=== PATIENT | male | born 1960 | race Two or more races ===

== ENCOUNTER 2016-11-16 20:40 | Inpatient (IN) | payer MEDICARE, MEDICAID ==
[2016-11-16 21:15] VITALS: BP 95/70
--- NOTE | 2016-11-17 00:31 | History & Physical ---
ADMIT DATE: 11/16/2016 HISTORY OF PRESENT ILLNESS: A 56-year-old male patient apparently known to have history of cerebral palsy and he found himself trying to hang himself in the shower robe and he was seen at the [facility], was admitted for depression, hopelessness, anxiety and anger. PAST MEDICAL HISTORY: History of hyperlipidemia and history of cerebral palsy and mental delay. PHYSICAL EXAMINATION: GENERAL: The patient curled up in the bed. HEAD: Normal. ENT: Normal. NECK: Supple, nontender. LUNGS: Clear. CARDIOVASCULAR SYSTEM: S1, S2 heard. ABDOMEN: Soft. Bowel sounds are heard. CENTRAL NERVOUS SYSTEM: Grossly normal. DIAGNOSES: Status post history of ____, history of cerebral palsy, history of depression, history of hyperlipidemia and history of major depressive disorder and ____. PLAN: The patient is being admitted. I will follow clinically and I will review his labs and x-ray and medications and the Psych, Dr. Jean will follow the patient psychiatrically. [facility]# [id number]
[2016-11-17] MEDS: OLANZapine 5 mg Oral Disintegrating Tab PO SCH ×3 (06:55→17:36)
[2016-11-17] MEDS ORDERED: Haloperidol Lactate 5 mg/mL 1mL Vial IM ONE (11:38)
[2016-11-17] MEDS ORDERED: Haloperidol Lactate 5 mg/mL 1mL Vial ONE (11:45)
--- NOTE | 2016-11-17 11:59 | History & Physical ---
ADMIT DATE: 11/16/2016 IDENTIFYING INFORMATION: The patient is a 56-year-old male. CHIEF COMPLAINT: The patient nonverbal, but yelling and screaming. HISTORY OF PRESENT ILLNESS: The patient was admitted because of depression, attempted to harm himself in the bathroom in his home. He is not on any medication. He came from [facility], he resides in [facility]. He has cerebral palsy. The patient has been yelling and screaming. Unable to participate in a meaningful conversation or make safe plan for self-care. He is unpredictable, impulsive, needing redirection, he is yelling and screaming, he wants injection. He is self-referred. Unable to make safe plan for self-care. PAST PSYCHIATRIC HISTORY: Not known to me, but apparently he has been already on Paxil, Ativan and Zyprexa, so that probably indicates that he may have been seen by psychiatrist. MEDICAL HISTORY: Deferred to the medical doctor. ALLERGIES: HE IS ALLERGIC TO PENICILLIN. He has cerebral palsy, nonverbal, mental retardation. MEDICATIONS: He is on Zyprexa 5 mg twice a day, Paxil 60 mg daily. No other medications. He is on hydrocodone and would like it in injection the staff reports, I am not sure how he interacts with them. FAMILY AND SOCIAL HISTORY: Unobtainable, I am not sure where he was living or if he is living with anybody. No information is available. MENTAL STATUS EXAMINATION: The patient is appropriately dressed, not well groomed. He looked disheveled. He has diapers on, yelling and screaming, unable to provide meaningful conversation. ____ hang himself. Unable to test his memory. He obviously has poor insight. He is depressed, unpredictable, impulsive, needing redirection. His insight and judgment is impaired. IMPRESSION: AXIS I: Mood disorder, depressed, nonspecific. MEDICAL DIAGNOSIS: Cerebral palsy. His assets, he wants to get help, negative poor coping skills. INITIAL TREATMENT PLAN: The patient will be put on medications. Adjust medication as needed. ESTIMATED LENGTH OF STAY: 3-7 days. DISCHARGE CRITERIA: Decrease in depression, no longer yelling and screaming or suicidal after discharge. [facility]# [id number]
--- NOTE | 2016-11-17 14:30 | General Progress Note ---
Subjective - Review of Systems Events since last encounter: patient awake no acute distress patient is withdrawn depressed with h/o si Objective - Physical Exam Vitals and I&O: Vital Signs Temp 98.6 F 11/16/16 21:09 Pulse 100 11/16/16 21:09 Resp 20 11/17/16 08:00 BP 95/70 11/16/16 21:14 Pulse Ox 97 11/16/16 21:09 Intake & Output 11/16/16 11/17/16 11/17/16 18:59 06:59 18:59 Intake Total 0 Balance 0 Weight (lbs) 86.001 kg Intake: Oral 0 Other: # Voids 1 # Bowel Movements 0 Active Medications: Current Medications Acetaminophen (Tylenol) 650 mg PO Q4HR PRN PRN Reason: Mild Pain / Temp above 100 Stop: 01/15/17 21:28 Acetaminophen/Hydrocodone Bitart ([place] 10 Mg/325 Mg) 1 tab PO Q6H PRN PRN Reason: Pain (Mild) Stop: 01/15/17 23:31 Diazepam (Valium) 5 mg PO TID PRN PRN Reason: Anxiety Olanzapine (Zyprexa Zydis) 5 mg PO BID KENDRA PRN Reason: Protocol Stop: 01/16/17 05:59 Last Admin: 11/17/16 06:55 Dose: Not Given Paroxetine HCl (Paxil) 30 mg PO DAILY [facility] Stop: 01/16/17 08:59 Temazepam (Restoril) 15 mg PO HS PRN; Protocol PRN Reason: Insomnia Stop: 01/15/17 23:31 General: No acute distress HEENT: Atraumatic Cardiovascular: Regular rate, Normal S1, Normal S2 Abdomen: Bowel sounds Assessment/Plan - Problem List Patient Problems: All Active Problems H/O hyperlipidemia (Acute) Z86.39 H/O: CVA (cerebrovascular accident) (Acute) Z86.73 H/O: depression (Acute) Z86.59 - Plan Plan: as per psych as problems arise
--- NOTE | 2016-11-18 09:55 | General Progress Note ---
Subjective - Review of Systems Events since last encounter: patient still withdrawn insolates from others depressed , denies pain Objective - Physical Exam Vitals and I&O: Vital Signs Temp 98 F 11/18/16 06:48 Pulse 82 11/18/16 06:48 Resp 20 11/18/16 06:48 BP 135/80 11/18/16 06:48 Pulse Ox 95 11/18/16 06:48 Intake & Output 11/17/16 11/18/16 11/18/16 18:59 06:59 18:59 Intake Total 720 0 Balance 720 0 Intake: Oral 720 0 Other: # Voids 3 3 # Bowel Movements 0 0 Active Medications: Current Medications Acetaminophen (Tylenol) 650 mg PO Q4HR PRN PRN Reason: Mild Pain / Temp above 100 Stop: 01/15/17 21:28 Acetaminophen/Hydrocodone Bitart ([place] 10 Mg/325 Mg) 1 tab PO Q6H PRN PRN Reason: Pain (Mild) Stop: 01/15/17 23:31 Diazepam (Valium) 5 mg PO TID PRN PRN Reason: Anxiety Ketorolac Tromethamine (Toradol) 30 mg IM Q6HR PRN PRN Reason: Pain (Moderate) Stop: 01/16/17 19:35 Olanzapine (Zyprexa Zydis) 5 mg PO BID KENDRA PRN Reason: Protocol Stop: 01/16/17 05:59 Last Admin: 11/17/16 17:36 Dose: 5 mg Paroxetine HCl (Paxil) 30 mg PO DAILY KENDRA Stop: 01/16/17 08:59 Last Admin: 11/17/16 17:34 Dose: 30 mg Temazepam (Restoril) 15 mg PO HS PRN; Protocol PRN Reason: Insomnia Stop: 01/15/17 23:31 Last Admin: 11/17/16 20:13 Dose: 15 mg General: No acute distress HEENT: Atraumatic Cardiovascular: Regular rate, Normal S1, Normal S2 Abdomen: Bowel sounds Assessment/Plan - Problem List Patient Problems: All Active Problems H/O hyperlipidemia (Acute) Z86.39 H/O: CVA (cerebrovascular accident) (Acute) Z86.73 H/O: depression (Acute) Z86.59 - Plan Plan: as per psych as problems arise
[2016-11-18] MEDS: OLANZapine 5 mg Oral Disintegrating Tab PO SCH ×2 (10:25→17:10)
[2016-11-19] MEDS: OLANZapine 5 mg Oral Disintegrating Tab PO SCH ×2 (08:17→16:48)
--- NOTE | 2016-11-19 08:45 | General Progress Note ---
Subjective - Review of Systems Events since last encounter: no acute distress patient awake still depressed Objective - Physical Exam Vitals and I&O: Vital Signs Temp 97.5 F 11/19/16 06:41 Pulse 65 11/19/16 06:41 Resp 18 11/19/16 06:41 BP 120/66 11/19/16 06:41 Pulse Ox 96 11/19/16 06:41 Intake & Output 11/18/16 11/19/16 11/19/16 18:59 06:59 18:59 Intake Total 960 120 Balance 960 120 Intake: Oral 960 120 Other: # Voids 3 3 # Bowel Movements 0 Active Medications: Current Medications Acetaminophen (Tylenol) 650 mg PO Q4HR PRN PRN Reason: Mild Pain / Temp above 100 Stop: 01/15/17 21:28 Acetaminophen/Hydrocodone Bitart ([place] 10 Mg/325 Mg) 1 tab PO Q6H PRN PRN Reason: Pain (Mild) Stop: 01/15/17 23:31 Diazepam (Valium) 5 mg PO TID PRN PRN Reason: Anxiety Ketorolac Tromethamine (Toradol) 30 mg IM Q6HR PRN PRN Reason: Pain (Moderate) Stop: 01/16/17 19:35 Olanzapine (Zyprexa Zydis) 5 mg PO BID KENDRA PRN Reason: Protocol Stop: 01/16/17 05:59 Last Admin: 11/19/16 08:17 Dose: Not Given Paroxetine HCl (Paxil) 30 mg PO DAILY KENDRA Stop: 01/16/17 08:59 Last Admin: 11/19/16 08:17 Dose: Not Given Temazepam (Restoril) 15 mg PO HS PRN; Protocol PRN Reason: Insomnia Stop: 01/15/17 23:31 Last Admin: 11/18/16 22:59 Dose: 15 mg General: No acute distress HEENT: Atraumatic Cardiovascular: Regular rate, Normal S1, Normal S2 Abdomen: Bowel sounds Assessment/Plan - Problem List Patient Problems: All Active Problems H/O hyperlipidemia (Acute) Z86.39 H/O: CVA (cerebrovascular accident) (Acute) Z86.73 H/O: depression (Acute) Z86.59 - Plan Plan: as per psych as problems arise
--- NOTE | 2016-11-19 09:49 | Progress Notes ---
DATE: 11/18/2016 SUBJECTIVE: Chart reviewed and the patient interviewed. Also discussed the patient's condition with the staff and reviewed records and labs. The patient is still severely anxious and easily agitated. The patient also is still in a depressed mood. The patient also still has thoughts of suicide with plan to hang himself which he tried to do that before. The patient also during the interview was mumbling and had difficulty expressing himself and expressing his feelings. Also, personal hygiene is still poor. During interview, the patient is actively responding to stimuli. Also, he is talking to himself. The patient also is having difficulty formalizing sentences or expressing his feelings. Also, still having thoughts of suicide, was planning to hang himself. ASSESSMENT: The patient is still depressed and suicidal and psychotic. TREATMENT PLAN: Continue monitoring his behavior and his condition closely. Also, continue to work on his ineffective coping and continue the Paxil, same dose. JOB# [id number]
[2016-11-19] MEDS: Hydrocodone/APAP 10 mg/325 mg Tab PO PRN ×2 (14:50→23:39)
--- NOTE | 2016-11-20 07:35 | Progress Notes ---
DATE: 11/19/2016 SUBJECTIVE: Chart reviewed and the patient interviewed. Also discussed the patient's condition with the staff and reviewed records and labs. The patient remains extremely angry and is still in irritable mood. The patient also is easily agitated. The patient also is slightly confused. Also, is still having difficulty expressing himself and expressing his feelings. The patient also refused to take his medications for no apparent reason. He also is still having difficulty with his anger. The patient's daughter was there and discussed with her treatment plans. ASSESSMENT: The patient is still considered to be dangerous to self or others and gravely disabled. TREATMENT PLAN: Continue monitoring his behavior and his condition closely. Also, continue to work on his ineffective coping and his poor impulse control. JOB# [id number]
--- NOTE | 2016-11-20 08:27 | General Progress Note ---
Subjective - Review of Systems Events since last encounter: patient confused , irritable in no acute distress Objective - Physical Exam Vitals and I&O: Vital Signs Temp 98.2 F 11/20/16 06:42 Pulse 60 11/20/16 06:42 Resp 19 11/20/16 06:42 BP 121/83 11/20/16 06:42 Pulse Ox 96 11/20/16 06:42 Intake & Output 11/19/16 11/20/16 11/20/16 18:59 06:59 18:59 Intake Total 660 120 Balance 660 120 Weight (lbs) 77.882 kg Intake: Oral 660 120 Other: # Voids 3 3 # Bowel Movements 0 Active Medications: Current Medications Acetaminophen (Tylenol) 650 mg PO Q4HR PRN PRN Reason: Mild Pain / Temp above 100 Stop: 01/15/17 21:28 Acetaminophen/Hydrocodone Bitart ([place] 10 Mg/325 Mg) 1 tab PO Q6H PRN PRN Reason: Pain (Mild) Stop: 01/15/17 23:31 Last Admin: 11/19/16 23:39 Dose: 1 tab Diazepam (Valium) 5 mg PO TID PRN PRN Reason: Anxiety Ketorolac Tromethamine (Toradol) 30 mg IM Q6HR PRN PRN Reason: Pain (Moderate) Stop: 01/16/17 19:35 Olanzapine (Zyprexa Zydis) 5 mg PO BID KENDRA PRN Reason: Protocol Stop: 01/16/17 05:59 Last Admin: 11/19/16 16:48 Dose: 5 mg Paroxetine HCl (Paxil) 30 mg PO DAILY KENDRA Stop: 01/16/17 08:59 Last Admin: 11/19/16 08:17 Dose: Not Given Temazepam (Restoril) 15 mg PO HS PRN; Protocol PRN Reason: Insomnia Stop: 01/15/17 23:31 Last Admin: 11/18/16 22:59 Dose: 15 mg Trazodone HCl (Desyrel) 50 mg PO HS KENDRA PRN Reason: Protocol Stop: 01/18/17 20:59 Last Admin: 11/19/16 20:59 Dose: 50 mg General: No acute distress HEENT: Atraumatic Cardiovascular: Regular rate, Normal S1, Normal S2 Abdomen: Bowel sounds Assessment/Plan - Problem List Patient Problems: All Active Problems H/O hyperlipidemia (Acute) Z86.39 H/O: CVA (cerebrovascular accident) (Acute) Z86.73 H/O: depression (Acute) Z86.59 - Plan Plan: as per psych as problems arise Nutritional Asmnt/Malnutr-PDOC - Dietary Evaluation Malnutrition Findings (Please click <Entered> for more info): Nutritional Asmnt/Malnutrition Start: 11/19/16 16: 01 Text: Status: Complete Freq: Document 11/19/16 16:01 GSUN (Rec: 11/19/16 16:19 GSUN [email or web address]) Nutritional Asmnt/Malnutrition Patient General Information Nutritional Screening Moderate Risk Screening Diagnosis Mood disorder, depressed, nonspecific, 5150 Pertinent Medical Hx/Surgical Hx Cerebral palsy, hyperlipidemia , mental delay Subjective Information 56 year old male form home. 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 Spoke to pt, pt nodded when asked if he felt hungry, shook head when asked if he wanted any food. Spoke to BANQUET COORDINATOR, BANQUET COORDINATOR attempted to feed today, pt turned head away. Per RN notes , pt with episodes of yelling and resistive of care, does eat when pt is calm. Per nursing staff, pt does like juice. No muscle fat wasting noted. Current Diet Order/ Nutrition Support [facility] soft ground Pertinent Medications Reviewed. Pertinent Labs No current labs. Nutritional Hx/Data Height 1.75 m Height (Calculated Centimeters) 175.3 Current Weight (lbs) 77.882 kg Weight (Calculated Kilograms) 77.9 Weight (Calculated Grams) 10318.8 [place] Body Weight 160 Weight Status Approriate GI Symptoms Skin Integrity/Comment: Aj 15. Skin intact. Current %PO Poor (25-49%) Estimated Nutritional Goals BEE in Kcals: Using Current wt Calories/Kcals/Kg CBW 171.7lb/78kg Kcals Calculated 1950-2340kcal (25-30kcal/kg) Protein Calculated 62-78g (0.8-1g/kg) Fluid: ml 1950-2340ml (1ml/kcal) Nutritional Problem 1. Problem Problem Inadequate oral food beverage intake realted to Etiology cognition aeb Signs/Symptoms: pt refusing meals and resistive of care Intervention/Recommendation Comments 1. Conitnue with current diet order. Avg PO intake indequate , pt noted to be refusing meals and resistive of care. Nursing staff to provide total assist with meals. 2. Recommend Boost Breeze TID as pt noted to tolerate juice. Expected Outcomes/Goals Expected Outcomes/Goals 1. PO intake to meet at least 75% of estimated nutritional needs.
[2016-11-20] MEDS: OLANZapine 5 mg Oral Disintegrating Tab PO SCH (09:34)
[2016-11-20] MEDS: Hydrocodone/APAP 10 mg/325 mg Tab PO PRN (15:43)
[2016-11-21] MEDS: OLANZapine 5 mg Oral Disintegrating Tab PO SCH ×3 (10:00→17:57)
[2016-11-21] MEDS: Hydrocodone/APAP 10 mg/325 mg Tab PO PRN (12:56)
--- NOTE | 2016-11-21 13:36 | Progress Notes ---
DATE: 11/21/2016 SUBJECTIVE: The patient was seen in her room, lying in the bed. The patient is awake, alert and oriented x 2 with episodes of confusion and agitation. The patient easily gets irritated, otherwise, the patient appears to be in no acute distress. OBJECTIVE: HEENT: Head is atraumatic and normocephalic. Eyes: Bilateral conjunctivae are clear. Bilateral pupils are equally round and reactive. NECK: Supple. No JVD. CARDIOVASCULAR: S1 and S2, without murmur. PULMONARY: Clear to auscultation. GASTROINTESTINAL: Soft and nontender without guarding. Positive bowel sounds. MUSCULOSKELETAL: No edema. No clubbing or cyanosis noted. ASSESSMENT: 1. Schizophrenia. 2. Anxiety. 3. Insomnia. 4. Osteoarthritis. PLAN: We will keep the patient in Geropsych Unit. We will follow up with a psychiatrist to monitor the patient's condition. Treatment plans were discussed with the patient's nurse. Treatment plans were discussed with Dr. Moran. JOB# [id number]
--- NOTE | 2016-11-21 21:56 | Progress Notes ---
DATE: 11/21/2016 SUBJECTIVE: Chart reviewed and the patient interviewed. Also, discussed the patient's condition with the staff and reviewed records and labs. The patient continued to be extremely angry and he is still in a depressed mood. The patient also is still isolative and withdrawn and interacting minimally with others. The patient also is still selective in regards to medications and refusing medications at times. The patient also continues to talk about his desire to hang himself. Otherwise, the patient seems to be slightly more cooperative than before. ASSESSMENT: The patient is still depressed and is still suicidal. TREATMENT PLAN: We will continue monitoring his behavior and his condition closely. Also, continue to work on his severe depression and ineffective coping. [facility]# [id number]
--- NOTE | 2016-11-21 22:04 | Progress Notes ---
DATE: 11/21/2016 SUBJECTIVE: Chart reviewed and the patient interviewed. Also, discussed the patient's condition with the staff and reviewed records and labs. The patient continued to be in angry mood and continues to be easily agitated and easily irritable. The patient also is still selectively mute. Also, the patient is disheveled. He also is complaining of insomnia and the patient took trazodone and then he took Restoril in order to help him to sleep at night. The patient also is rambling and has disorganized thoughts. ASSESSMENT: The patient is still depressed and can be dangerous to self and is still psychotic. TREATMENT PLAN: We will continue with Zyprexa 5 mg twice a day and Paxil 30 mg every day as well as trazodone 50 mg at bedtime. Also, continue to work on ineffective coping and behavioral modification. JOB# [id number]
[2016-11-22] MEDS: OLANZapine 5 mg Oral Disintegrating Tab PO SCH ×2 (08:55→16:45)
--- NOTE | 2016-11-22 11:26 | General Progress Note ---
Subjective - Review of Systems Events since last encounter: patient in no acute distress still psychotic Objective - Physical Exam Vitals and I&O: Vital Signs Temp 98.2 F 11/22/16 06:57 Pulse 84 11/22/16 06:57 Resp 20 11/22/16 06:57 BP 124/69 11/22/16 06:57 Pulse Ox 96 11/22/16 06:57 Intake & Output 11/21/16 11/22/16 11/22/16 18:59 06:59 18:59 Intake Total 800 240 Balance 800 240 Intake: Oral 800 240 Other: # Voids 4 1 # Bowel Movements 0 Active Medications: Current Medications Acetaminophen (Tylenol) 650 mg PO Q4HR PRN PRN Reason: Mild Pain / Temp above 100 Stop: 01/15/17 21:28 Last Admin: 11/20/16 21:08 Dose: 650 mg Acetaminophen/Hydrocodone Bitart ([place] 10 Mg/325 Mg) 1 tab PO Q6H PRN PRN Reason: Pain (Mild) Stop: 01/15/17 23:31 Last Admin: 11/21/16 12:56 Dose: 1 tab Diazepam (Valium) 5 mg PO TID PRN PRN Reason: Anxiety Ketorolac Tromethamine (Toradol) 30 mg IM Q6HR PRN PRN Reason: Pain (Moderate) Stop: 01/16/17 19:35 Olanzapine (Zyprexa Zydis) 5 mg PO BID KENDRA PRN Reason: Protocol Stop: 01/16/17 05:59 Last Admin: 11/22/16 08:55 Dose: 5 mg Paroxetine HCl (Paxil) 30 mg PO DAILY KENDRA Stop: 01/16/17 08:59 Last Admin: 11/22/16 08:55 Dose: 30 mg Temazepam (Restoril) 15 mg PO HS PRN; Protocol PRN Reason: Insomnia Stop: 01/15/17 23:31 Last Admin: 11/20/16 23:53 Dose: 15 mg Trazodone HCl (Desyrel) 50 mg PO HS KENDRA PRN Reason: Protocol Stop: 01/18/17 20:59 Last Admin: 11/21/16 23:22 Dose: Not Given General: No acute distress HEENT: Atraumatic Cardiovascular: Regular rate, Normal S1, Normal S2 Abdomen: Bowel sounds Assessment/Plan - Problem List Patient Problems: All Active Problems H/O hyperlipidemia (Acute) Z86.39 H/O: CVA (cerebrovascular accident) (Acute) Z86.73 H/O: depression (Acute) Z86.59 - Plan Plan: as per psych as problems arise Nutritional Asmnt/Malnutr-PDOC - Dietary Evaluation Malnutrition Findings (Please click <Entered> for more info): Nutritional Asmnt/Malnutrition Start: 11/19/16 16: 01 Text: Status: Complete Freq: Document 11/19/16 16:01 GSUN (Rec: 11/19/16 16:19 GSUN [email or web address]) Nutritional Asmnt/Malnutrition Patient General Information Nutritional Screening Moderate Risk Screening Diagnosis Mood disorder, depressed, nonspecific, 5150 Pertinent Medical Hx/Surgical Hx Cerebral palsy, hyperlipidemia , mental delay Subjective Information 56 year old male form home. 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 Spoke to pt, pt nodded when asked if he felt hungry, shook head when asked if he wanted any food. Spoke to [employer]IVER [employer]AK[employer] BOATMAN, R[employer] BOATMAN attempted to feed today, pt turned head away. Per RN notes , pt with episodes of yelling and resistive of care, does eat when pt is calm. Per nursing staff, pt does like juice. No muscle fat wasting noted. Current Diet Order/ Nutrition Support [facility] soft ground Pertinent Medications Reviewed. Pertinent Labs No current labs. Nutritional Hx/Data Height 1.75 m Height (Calculated Centimeters) 175.3 Current Weight (lbs) 77.882 kg Weight (Calculated Kilograms) 77.9 Weight (Calculated Grams) 02308.8 [place] Body Weight 160 Weight Status Approriate GI Symptoms Skin Integrity/Comment: Aj 15. Skin intact. Current %PO Poor (25-49%) Estimated Nutritional Goals BEE in Kcals: Using Current wt Calories/Kcals/Kg CBW 171.7lb/78kg Kcals Calculated 1950-2340kcal (25-30kcal/kg) Protein Calculated 62-78g (0.8-1g/kg) Fluid: ml 1950-2340ml (1ml/kcal) Nutritional Problem 1. Problem Problem Inadequate oral food beverage intake realted to Etiology cognition aeb Signs/Symptoms: pt refusing meals and resistive of care Intervention/Recommendation Comments 1. Conitnue with current diet order. Avg PO intake indequate , pt noted to be refusing meals and resistive of care. Nursing staff to provide total assist with meals. 2. Recommend Boost Breeze TID as pt noted to tolerate juice. Expected Outcomes/Goals Expected Outcomes/Goals 1. PO intake to meet at least 75% of estimated nutritional needs.
--- NOTE | 2016-11-22 20:48 | Progress Notes ---
DATE: 11/22/2016 The patient is still complaining of insomnia. Although, he has been taking trazodone 50 mg at bedtime. The patient did take Restoril last night that did help him to sleep slightly better. He is still in a depressed mood and he still has episodes of agitation and irritability. He also has still episodes of anger. Otherwise, the patient is compliant with taking his medications and he continued to take Zyprexa, trazodone, and Paxil with no side effects. [facility]# [id number]
[2016-11-23] MEDS: Hydrocodone/APAP 10 mg/325 mg Tab PO PRN (02:57)
--- NOTE | 2016-11-23 08:39 | General Progress Note ---
Subjective - Review of Systems Events since last encounter: no distress denies pains c/o insomnia Objective - Physical Exam Vitals and I&O: Vital Signs Temp 98.0 F 11/23/16 06:30 Pulse 77 11/23/16 06:30 Resp 18 11/23/16 06:30 BP 132/81 11/23/16 06:30 Pulse Ox 92 11/23/16 06:30 Intake & Output 11/22/16 11/23/16 11/23/16 18:59 06:59 18:59 Intake Total 800 240 Balance 800 240 Intake: Oral 800 240 Other: # Voids 4 2 # Bowel Movements 0 0 Active Medications: Current Medications Acetaminophen (Tylenol) 650 mg PO Q4HR PRN PRN Reason: Mild Pain / Temp above 100 Stop: 01/15/17 21:28 Last Admin: 11/20/16 21:08 Dose: 650 mg Acetaminophen/Hydrocodone Bitart ([place] 10 Mg/325 Mg) 1 tab PO Q6H PRN PRN Reason: Pain (Mild) Stop: 01/15/17 23:31 Last Admin: 11/23/16 02:57 Dose: 1 tab Diazepam (Valium) 5 mg PO TID PRN PRN Reason: Anxiety Ketorolac Tromethamine (Toradol) 30 mg IM Q6HR PRN PRN Reason: Pain (Moderate) Stop: 01/16/17 19:35 Olanzapine (Zyprexa Zydis) 5 mg PO BID KENDRA PRN Reason: Protocol Stop: 01/16/17 05:59 Last Admin: 11/22/16 16:45 Dose: 5 mg Paroxetine HCl (Paxil) 30 mg PO DAILY KENDRA Stop: 01/16/17 08:59 Last Admin: 11/22/16 08:55 Dose: 30 mg Temazepam (Restoril) 15 mg PO HS PRN; Protocol PRN Reason: Insomnia Stop: 01/15/17 23:31 Last Admin: 11/22/16 23:18 Dose: 15 mg Trazodone HCl (Desyrel) 50 mg PO HS KENDRA PRN Reason: Protocol Stop: 01/18/17 20:59 Last Admin: 11/22/16 21:08 Dose: 50 mg General: No acute distress HEENT: Atraumatic Cardiovascular: Regular rate, Normal S1, Normal S2 Abdomen: Bowel sounds Assessment/Plan - Problem List Patient Problems: All Active Problems H/O hyperlipidemia (Acute) Z86.39 H/O: CVA (cerebrovascular accident) (Acute) Z86.73 H/O: depression (Acute) Z86.59 - Plan Plan: as per psych as problems arise Nutritional Asmnt/Malnutr-PDOC - Dietary Evaluation Malnutrition Findings (Please click <Entered> for more info): Nutritional Asmnt/Malnutrition Start: 11/19/16 16: 01 Text: Status: Complete Freq: Document 11/19/16 16:01 GSUN (Rec: 11/19/16 16:19 GSUN [email or web address]) Nutritional Asmnt/Malnutrition Patient General Information Nutritional Screening Moderate Risk Screening Diagnosis Mood disorder, depressed, nonspecific, 5150 Pertinent Medical Hx/Surgical Hx Cerebral palsy, hyperlipidemia , mental delay Subjective Information 56 year old male form home. Foundry Process Engineer was approached and informed by RN today that pt has been refusing meals. Spoke to pt, pt nodded when asked if he felt hungry, shook head when asked if he wanted any food. Spoke to BIOMEDICAL FIELD SERVICE ENGINEER, BIOMEDICAL FIELD SERVICE ENGINEER attempted to feed today, pt turned head away. Per RN notes , pt with episodes of yelling and resistive of care, does eat when pt is calm. Per nursing staff, pt does like juice. No muscle fat wasting noted. Current Diet Order/ Nutrition Support [facility] soft ground Pertinent Medications Reviewed. Pertinent Labs No current labs. Nutritional Hx/Data Height 1.75 m Height (Calculated Centimeters) 175.3 Current Weight (lbs) 77.882 kg Weight (Calculated Kilograms) 77.9 Weight (Calculated Grams) 71173.8 [place] Body Weight 160 Weight Status Approriate GI Symptoms Skin Integrity/Comment: Aj 15. Skin intact. Current %PO Poor (25-49%) Estimated Nutritional Goals BEE in Kcals: Using Current wt Calories/Kcals/Kg CBW 171.7lb/78kg Kcals Calculated 1950-2340kcal (25-30kcal/kg) Protein Calculated 62-78g (0.8-1g/kg) Fluid: ml 1950-2340ml (1ml/kcal) Nutritional Problem 1. Problem Problem Inadequate oral food beverage intake realted to Etiology cognition aeb Signs/Symptoms: pt refusing meals and resistive of care Intervention/Recommendation Comments 1. Conitnue with current diet order. Avg PO intake indequate , pt noted to be refusing meals and resistive of care. Nursing staff to provide total assist with meals. 2. Recommend Boost Breeze TID as pt noted to tolerate juice. Expected Outcomes/Goals Expected Outcomes/Goals 1. PO intake to meet at least 75% of estimated nutritional needs.
[2016-11-23] MEDS: OLANZapine 5 mg Oral Disintegrating Tab PO SCH ×2 (09:13→16:53)
--- NOTE | 2016-11-23 22:37 | Progress Notes ---
DATE: 11/23/2016 SUBJECTIVE: Chart reviewed and the patient interviewed. Also discussed the patient's condition with the staff and reviewed records and labs. The patient is still depressed and anxious. The patient also still has difficulty controlling his temper and is still feeling hopeless, especially with his difficulty expressing himself and expressing his feelings. Also, is having mood swings. Otherwise, the patient is compliant with taking his medications with no side effects of medications. ASSESSMENT: The patient is still depressed and agitated. TREATMENT PLAN: Continue monitoring his behavior and his condition closely. Also, continue work on his ineffective coping and adjusting psychotropic medications and we will continue to follow up. JOB# [id number]
--- NOTE | 2016-11-24 08:43 | General Progress Note ---
Subjective - Review of Systems Events since last encounter: patient awake alert no distress c/o insomnia Objective - Physical Exam Vitals and I&O: Vital Signs Temp 97.8 F 11/24/16 06:24 Pulse 89 11/24/16 06:24 Resp 20 11/24/16 06:24 BP 132/75 11/24/16 06:24 Pulse Ox 95 11/24/16 06:24 Intake & Output 11/23/16 11/24/16 11/24/16 18:59 06:59 18:59 Intake Total 1800 120 Balance 1800 120 Intake: Oral 1800 120 Other: # Voids 4 3 # Bowel Movements 0 0 Active Medications: Current Medications Acetaminophen (Tylenol) 650 mg PO Q4HR PRN PRN Reason: Mild Pain / Temp above 100 Stop: 01/15/17 21:28 Last Admin: 11/20/16 21:08 Dose: 650 mg Acetaminophen/Hydrocodone Bitart ([place] 10 Mg/325 Mg) 1 tab PO Q6H PRN PRN Reason: Pain (Mild) Stop: 01/15/17 23:31 Last Admin: 11/23/16 02:57 Dose: 1 tab Diazepam (Valium) 5 mg PO TID PRN PRN Reason: Anxiety Ketorolac Tromethamine (Toradol) 30 mg IM Q6HR PRN PRN Reason: Pain (Moderate) Stop: 01/16/17 19:35 Last Admin: 11/24/16 01:24 Dose: 30 mg Olanzapine (Zyprexa Zydis) 5 mg PO BID KENDRA PRN Reason: Protocol Stop: 01/16/17 05:59 Last Admin: 11/23/16 16:53 Dose: 5 mg Paroxetine HCl (Paxil) 30 mg PO DAILY KENDRA Stop: 01/16/17 08:59 Last Admin: 11/23/16 09:13 Dose: 30 mg Temazepam (Restoril) 15 mg PO HS PRN; Protocol PRN Reason: Insomnia Stop: 01/15/17 23:31 Last Admin: 11/22/16 23:18 Dose: 15 mg Trazodone HCl (Desyrel) 50 mg PO HS KENDRA PRN Reason: Protocol Stop: 01/18/17 20:59 Last Admin: 11/23/16 20:24 Dose: 50 mg General: No acute distress HEENT: Atraumatic Cardiovascular: Regular rate, Normal S1, Normal S2 Abdomen: Bowel sounds Assessment/Plan - Problem List Patient Problems: All Active Problems H/O hyperlipidemia (Acute) Z86.39 H/O: CVA (cerebrovascular accident) (Acute) Z86.73 H/O: depression (Acute) Z86.59 - Plan Plan: as per psych as problems arise Nutritional Asmnt/Malnutr-PDOC - Dietary Evaluation Malnutrition Findings (Please click <Entered> for more info): Nutritional Asmnt/Malnutrition Start: 11/19/16 16: 01 Text: Status: Complete Freq: Document 11/19/16 16:01 GSUN (Rec: 11/19/16 16:19 GSUN [email or web address]) Nutritional Asmnt/Malnutrition Patient General Information Nutritional Screening Moderate Risk Screening Diagnosis Mood disorder, depressed, nonspecific, 5150 Pertinent Medical Hx/Surgical Hx Cerebral palsy, hyperlipidemia , mental delay Subjective Information 56 year old male form home. Fire Sprinkler Inspector was approached and informed by RN today that pt has been refusing meals. Spoke to pt, pt nodded when asked if he felt hungry, shook head when asked if he wanted any food. Spoke to DIRECTOR CLIENT, DIRECTOR CLIENT attempted to feed today, pt turned head away. Per RN notes , pt with episodes of yelling and resistive of care, does eat when pt is calm. Per nursing staff, pt does like juice. No muscle fat wasting noted. Current Diet Order/ Nutrition Support [facility] soft ground Pertinent Medications Reviewed. Pertinent Labs No current labs. Nutritional Hx/Data Height 1.75 m Height (Calculated Centimeters) 175.3 Current Weight (lbs) 77.882 kg Weight (Calculated Kilograms) 77.9 Weight (Calculated Grams) 58028.8 [place] Body Weight 160 Weight Status Approriate GI Symptoms Skin Integrity/Comment: Aj 15. Skin intact. Current %PO Poor (25-49%) Estimated Nutritional Goals BEE in Kcals: Using Current wt Calories/Kcals/Kg CBW 171.7lb/78kg Kcals Calculated 1950-2340kcal (25-30kcal/kg) Protein Calculated 62-78g (0.8-1g/kg) Fluid: ml 1950-2340ml (1ml/kcal) Nutritional Problem 1. Problem Problem Inadequate oral food beverage intake realted to Etiology cognition aeb Signs/Symptoms: pt refusing meals and resistive of care Intervention/Recommendation Comments 1. Conitnue with current diet order. Avg PO intake indequate , pt noted to be refusing meals and resistive of care. Nursing staff to provide total assist with meals. 2. Recommend Boost Breeze TID as pt noted to tolerate juice. Expected Outcomes/Goals Expected Outcomes/Goals 1. PO intake to meet at least 75% of estimated nutritional needs.
[2016-11-24] MEDS: OLANZapine 5 mg Oral Disintegrating Tab PO SCH ×2 (10:34→17:02)
--- NOTE | 2016-11-24 20:38 | Progress Notes ---
DATE: 11/24/2016 SUBJECTIVE: Chart reviewed and the patient interviewed. Also discussed the patient's condition with the staff and reviewed records and labs. The patient is still paranoid and is still depressed. The patient also is still interacting minimally with others. The patient also seems to be preoccupied. On the other hand, the patient seems to be less agitated and tries to have more interaction with his facial expressions. ASSESSMENT: The patient is still anxious and irritable. TREATMENT PLAN: We will continue monitoring his behavior and his condition closely and we will continue to follow up. JOB# [id number]
[2016-11-24] MEDS: Hydrocodone/APAP 10 mg/325 mg Tab PO PRN (22:50)
--- NOTE | 2016-11-25 08:19 | General Progress Note ---
Subjective - Review of Systems Events since last encounter: patient still anxious with no acute distress Objective - Physical Exam Vitals and I&O: Vital Signs Temp 97.2 F 11/25/16 06:25 Pulse 70 11/25/16 06:25 Resp 19 11/25/16 06:25 BP 121/76 11/25/16 06:25 Pulse Ox 98 11/25/16 06:25 Intake & Output 11/24/16 11/25/16 11/25/16 18:59 06:59 18:59 Intake Total 600 240 Balance 600 240 Weight (lbs) 77.111 kg Intake: Oral 600 240 Other: # Voids 3 3 # Bowel Movements 1 0 Active Medications: Current Medications Acetaminophen (Tylenol) 650 mg PO Q4HR PRN PRN Reason: Mild Pain / Temp above 100 Stop: 01/15/17 21:28 Last Admin: 11/20/16 21:08 Dose: 650 mg Acetaminophen/Hydrocodone Bitart ([place] 10 Mg/325 Mg) 1 tab PO Q6H PRN PRN Reason: Pain (Mild) Stop: 01/15/17 23:31 Last Admin: 11/24/16 22:50 Dose: 1 tab Diazepam (Valium) 5 mg PO TID PRN PRN Reason: Anxiety Ketorolac Tromethamine (Toradol) 30 mg IM Q6HR PRN PRN Reason: Pain (Moderate) Stop: 01/16/17 19:35 Last Admin: 11/24/16 01:24 Dose: 30 mg Olanzapine (Zyprexa Zydis) 5 mg PO BID KENDRA PRN Reason: Protocol Stop: 01/16/17 05:59 Last Admin: 11/24/16 17:02 Dose: 5 mg Paroxetine HCl (Paxil) 30 mg PO DAILY KENDRA Stop: 01/16/17 08:59 Last Admin: 11/24/16 10:34 Dose: 30 mg Temazepam (Restoril) 15 mg PO HS PRN; Protocol PRN Reason: Insomnia Stop: 01/15/17 23:31 Last Admin: 11/24/16 22:49 Dose: 15 mg Trazodone HCl (Desyrel) 50 mg PO HS KENDRA PRN Reason: Protocol Stop: 01/18/17 20:59 Last Admin: 11/24/16 20:17 Dose: 50 mg General: No acute distress HEENT: Atraumatic Cardiovascular: Regular rate, Normal S1, Normal S2 Abdomen: Bowel sounds Assessment/Plan - Problem List Patient Problems: All Active Problems H/O hyperlipidemia (Acute) Z86.39 H/O: CVA (cerebrovascular accident) (Acute) Z86.73 H/O: depression (Acute) Z86.59 - Plan Plan: as per psych as problems arise Nutritional Asmnt/Malnutr-PDOC - Dietary Evaluation Malnutrition Findings (Please click <Entered> for more info): Nutritional Asmnt/Malnutrition Start: 11/19/16 16: 01 Text: Status: Complete Freq: Document 11/19/16 16:01 GSUN (Rec: 11/19/16 16:19 GSUN [email or web address]) Nutritional Asmnt/Malnutrition Patient General Information Nutritional Screening Moderate Risk Screening Diagnosis Mood disorder, depressed, nonspecific, 5150 Pertinent Medical Hx/Surgical Hx Cerebral palsy, hyperlipidemia , mental delay Subjective Information 56 year old male form home. Electrician Research was approached and informed by RN today that pt has been refusing meals. Spoke to pt, pt nodded when asked if he felt hungry, shook head when asked if he wanted any food. Spoke to BAG SORTER, BAG SORTER attempted to feed today, pt turned head away. Per RN notes , pt with episodes of yelling and resistive of care, does eat when pt is calm. Per nursing staff, pt does like juice. No muscle fat wasting noted. Current Diet Order/ Nutrition Support [facility] soft ground Pertinent Medications Reviewed. Pertinent Labs No current labs. Nutritional Hx/Data Height 1.75 m Height (Calculated Centimeters) 175.3 Current Weight (lbs) 77.882 kg Weight (Calculated Kilograms) 77.9 Weight (Calculated Grams) 11726.8 [place] Body Weight 160 Weight Status Approriate GI Symptoms Skin Integrity/Comment: Aj 15. Skin intact. Current %PO Poor (25-49%) Estimated Nutritional Goals BEE in Kcals: Using Current wt Calories/Kcals/Kg CBW 171.7lb/78kg Kcals Calculated 1950-2340kcal (25-30kcal/kg) Protein Calculated 62-78g (0.8-1g/kg) Fluid: ml 1950-2340ml (1ml/kcal) Nutritional Problem 1. Problem Problem Inadequate oral food beverage intake realted to Etiology cognition aeb Signs/Symptoms: pt refusing meals and resistive of care Intervention/Recommendation Comments 1. Conitnue with current diet order. Avg PO intake indequate , pt noted to be refusing meals and resistive of care. Nursing staff to provide total assist with meals. 2. Recommend Boost Breeze TID as pt noted to tolerate juice. Expected Outcomes/Goals Expected Outcomes/Goals 1. PO intake to meet at least 75% of estimated nutritional needs.
[2016-11-25] MEDS: OLANZapine 5 mg Oral Disintegrating Tab PO SCH ×2 (09:42→17:02)
[2016-11-25] MEDS: Hydrocodone/APAP 10 mg/325 mg Tab PO PRN (13:54)
--- NOTE | 2016-11-25 22:18 | Progress Notes ---
DATE: 11/25/2016 SUBJECTIVE: Chart reviewed and the patient interviewed. Also, discussed the patient's condition with the staff and reviewed records and labs. The patient is still anxious and he is still restless. The patient also is still severely depressed. The patient also is still having difficulty expressing himself even with writing. He also seems to have lack of motivations and lack of energy. Otherwise, the patient is compliant with taking his medications with no side effects of medications. I tried to call the patient's brother Ney at phone number [phone] and tried to leave the message, but mail box is full, and I was not able to leave the message. We will try again tomorrow and also is trying with welfare case worker to work on discharge plans and placement issue. JOB# [id number]
[2016-11-26] MEDS: OLANZapine 5 mg Oral Disintegrating Tab PO SCH ×2 (09:38→16:26)
--- NOTE | 2016-11-26 10:57 | General Progress Note ---
Subjective - Review of Systems Events since last encounter: patient is anxious restless Objective - Physical Exam Vitals and I&O: Vital Signs Temp 97.6 F 11/26/16 06:34 Pulse 91 11/26/16 06:34 Resp 20 11/26/16 06:34 BP 127/66 11/26/16 06:34 Pulse Ox 97 11/26/16 06:34 Intake & Output 11/25/16 11/26/16 11/26/16 18:59 06:59 18:59 Intake Total 1200 120 Output Total 1 Balance 1199 120 Intake: Oral 1200 120 Output: Stool 1 Other: # Voids 3 Stool Characteristics Formed Active Medications: Current Medications Acetaminophen (Tylenol) 650 mg PO Q4HR PRN PRN Reason: Mild Pain / Temp above 100 Stop: 01/15/17 21:28 Last Admin: 11/20/16 21:08 Dose: 650 mg Acetaminophen/Hydrocodone Bitart ([place] 10 Mg/325 Mg) 1 tab PO Q6H PRN PRN Reason: Pain (Mild) Stop: 01/15/17 23:31 Last Admin: 11/25/16 13:54 Dose: 1 tab Diazepam (Valium) 5 mg PO TID PRN PRN Reason: Anxiety Ketorolac Tromethamine (Toradol) 30 mg IM Q6HR PRN PRN Reason: Pain (Moderate) Stop: 01/16/17 19:35 Last Admin: 11/25/16 18:13 Dose: 30 mg Olanzapine (Zyprexa Zydis) 5 mg PO BID KENDRA PRN Reason: Protocol Stop: 01/16/17 05:59 Last Admin: 11/26/16 09:38 Dose: 5 mg Paroxetine HCl (Paxil) 40 mg PO DAILY KENDRA Stop: 01/16/17 08:59 Last Admin: 11/26/16 09:38 Dose: 40 mg Temazepam (Restoril) 15 mg PO HS PRN; Protocol PRN Reason: Insomnia Stop: 01/15/17 23:31 Last Admin: 11/25/16 20:47 Dose: 15 mg Trazodone HCl (Desyrel) 50 mg PO HS KENDRA PRN Reason: Protocol Stop: 01/18/17 20:59 Last Admin: 11/25/16 20:47 Dose: 50 mg General: No acute distress HEENT: Atraumatic Cardiovascular: Regular rate, Normal S1, Normal S2 Abdomen: Bowel sounds Assessment/Plan - Problem List Patient Problems: All Active Problems H/O hyperlipidemia (Acute) Z86.39 H/O: CVA (cerebrovascular accident) (Acute) Z86.73 H/O: depression (Acute) Z86.59 - Plan Plan: as per psych as problems arise Nutritional Asmnt/Malnutr-PDOC - Dietary Evaluation Malnutrition Findings (Please click <Entered> for more info): Nutritional Asmnt/Malnutrition Start: 11/19/16 16: 01 Text: Status: Complete Freq: Document 11/19/16 16:01 GSTINA (Rec: 11/19/16 16:19 GSUN [email or web address]) Nutritional Asmnt/Malnutrition Patient General Information Nutritional Screening Moderate Risk Screening Diagnosis Mood disorder, depressed, nonspecific, 5150 Pertinent Medical Hx/Surgical Hx Cerebral palsy, hyperlipidemia , mental delay Subjective Information 56 year old male form home. Foundation Digger was approached and informed by RN today that pt has been refusing meals. Spoke to pt, pt nodded when asked if he felt hungry, shook head when asked if he wanted any food. Spoke to LACE WINDER, LACE WINDER attempted to feed today, pt turned head away. Per RN notes , pt with episodes of yelling and resistive of care, does eat when pt is calm. Per nursing staff, pt does like juice. No muscle fat wasting noted. Current Diet Order/ Nutrition Support [facility] soft ground Pertinent Medications Reviewed. Pertinent Labs No current labs. Nutritional Hx/Data Height 1.75 m Height (Calculated Centimeters) 175.3 Current Weight (lbs) 77.882 kg Weight (Calculated Kilograms) 77.9 Weight (Calculated Grams) 02090.8 [place] Body Weight 160 Weight Status Approriate GI Symptoms Skin Integrity/Comment: Aj 15. Skin intact. Current %PO Poor (25-49%) Estimated Nutritional Goals BEE in Kcals: Using Current wt Calories/Kcals/Kg CBW 171.7lb/78kg Kcals Calculated 1950-2340kcal (25-30kcal/kg) Protein Calculated 62-78g (0.8-1g/kg) Fluid: ml 1950-2340ml (1ml/kcal) Nutritional Problem 1. Problem Problem Inadequate oral food beverage intake realted to Etiology cognition aeb Signs/Symptoms: pt refusing meals and resistive of care Intervention/Recommendation Comments 1. Conitnue with current diet order. Avg PO intake indequate , pt noted to be refusing meals and resistive of care. Nursing staff to provide total assist with meals. 2. Recommend Boost Breeze TID as pt noted to tolerate juice. Expected Outcomes/Goals Expected Outcomes/Goals 1. PO intake to meet at least 75% of estimated nutritional needs.
[2016-11-26] MEDS: Hydrocodone/APAP 10 mg/325 mg Tab PO PRN (11:47)
--- NOTE | 2016-11-26 20:36 | Progress Notes ---
DATE: 11/26/2016 SUBJECTIVE: Chart reviewed and the patient interviewed. Also discussed the patient's condition with the staff and reviewed records and labs. The patient still has episodes of yelling and screaming. The patient also is still having difficulty following staff directions. Also, the patient's affect is flat. The patient also is still easily agitated and easily irritable. Also seems to be in a depressed mood. Otherwise, the patient is compliant with taking his medications with no side effects of medications. still trying to come to a conclusion with the family about after discharge plans. The patient's brother did not answer me back yet. At the same time, we will continue monitoring his behavior and continue to follow up. [facility]# [id number]
[2016-11-27] MEDS: Hydrocodone/APAP 10 mg/325 mg Tab PO PRN ×2 (00:36→08:45)
--- NOTE | 2016-11-27 08:29 | General Progress Note ---
Subjective - Review of Systems Subjective: awake, agitated nad Objective - Physical Exam Vitals and I&O: Vital Signs Temp 96.9 F 11/27/16 06:24 Pulse 94 11/27/16 06:24 Resp 19 11/27/16 06:24 BP 124/64 11/27/16 06:24 Pulse Ox 96 11/27/16 06:24 Intake & Output 11/26/16 11/27/16 11/27/16 18:59 06:59 18:59 Intake Total 1200 120 Balance 1200 120 Intake: Oral 1200 120 Other: # Voids 3 # Bowel Movements 1 Active Medications: Current Medications Acetaminophen (Tylenol) 650 mg PO Q4HR PRN PRN Reason: Mild Pain / Temp above 100 Stop: 01/15/17 21:28 Last Admin: 11/20/16 21:08 Dose: 650 mg Acetaminophen/Hydrocodone Bitart ([place] 10 Mg/325 Mg) 1 tab PO Q6H PRN PRN Reason: Pain (Mild) Stop: 01/15/17 23:31 Last Admin: 11/27/16 00:36 Dose: 1 tab Diazepam (Valium) 5 mg PO TID PRN PRN Reason: Anxiety Ketorolac Tromethamine (Toradol) 30 mg IM Q6HR PRN PRN Reason: Pain (Moderate) Stop: 01/16/17 19:35 Last Admin: 11/26/16 16:26 Dose: 30 mg Olanzapine (Zyprexa Zydis) 5 mg PO BID KENDRA PRN Reason: Protocol Stop: 01/16/17 05:59 Last Admin: 11/26/16 16:26 Dose: 5 mg Paroxetine HCl (Paxil) 40 mg PO DAILY KENDRA Stop: 01/16/17 08:59 Last Admin: 11/26/16 09:38 Dose: 40 mg Temazepam (Restoril) 15 mg PO HS PRN; Protocol PRN Reason: Insomnia Stop: 01/15/17 23:31 Last Admin: 11/25/16 20:47 Dose: 15 mg Trazodone HCl (Desyrel) 50 mg PO HS KENDRA PRN Reason: Protocol Stop: 01/18/17 20:59 Last Admin: 11/26/16 20:40 Dose: 50 mg General: No acute distress HEENT: Atraumatic Cardiovascular: Regular rate, Normal S1, Normal S2 Abdomen: Bowel sounds Assessment/Plan - Problem List Patient Problems: All Active Problems H/O hyperlipidemia (Acute) Z86.39 H/O: CVA (cerebrovascular accident) (Acute) Z86.73 H/O: depression (Acute) Z86.59 - Plan Plan: as per psych as problems arise Nutritional Asmnt/Malnutr-PDOC - Dietary Evaluation Malnutrition Findings (Please click <Entered> for more info): Nutritional Asmnt/Malnutrition Start: 11/19/16 16: 01 Text: Status: Complete Freq: Document 11/19/16 16:01 GSUN (Rec: 11/19/16 16:19 GSUN [email or web address]) Nutritional Asmnt/Malnutrition Patient General Information Nutritional Screening Moderate Risk Screening Diagnosis Mood disorder, depressed, nonspecific, 5150 Pertinent Medical Hx/Surgical Hx Cerebral palsy, hyperlipidemia , mental delay Subjective Information 56 year old male form home. Merchandising Director was approached and informed by RN today that pt has been refusing meals. Spoke to pt, pt nodded when asked if he felt hungry, shook head when asked if he wanted any food. Spoke to FILEMAKER DEVELOPER, FILEMAKER DEVELOPER attempted to feed today, pt turned head away. Per RN notes , pt with episodes of yelling and resistive of care, does eat when pt is calm. Per nursing staff, pt does like juice. No muscle fat wasting noted. Current Diet Order/ Nutrition Support [facility] soft ground Pertinent Medications Reviewed. Pertinent Labs No current labs. Nutritional Hx/Data Height 1.75 m Height (Calculated Centimeters) 175.3 Current Weight (lbs) 77.882 kg Weight (Calculated Kilograms) 77.9 Weight (Calculated Grams) 83037.8 [place] Body Weight 160 Weight Status Approriate GI Symptoms Skin Integrity/Comment: Aj 15. Skin intact. Current %PO Poor (25-49%) Estimated Nutritional Goals BEE in Kcals: Using Current wt Calories/Kcals/Kg CBW 171.7lb/78kg Kcals Calculated 1950-2340kcal (25-30kcal/kg) Protein Calculated 62-78g (0.8-1g/kg) Fluid: ml 1950-2340ml (1ml/kcal) Nutritional Problem 1. Problem Problem Inadequate oral food beverage intake realted to Etiology cognition aeb Signs/Symptoms: pt refusing meals and resistive of care Intervention/Recommendation Comments 1. Conitnue with current diet order. Avg PO intake indequate , pt noted to be refusing meals and resistive of care. Nursing staff to provide total assist with meals. 2. Recommend Boost Breeze TID as pt noted to tolerate juice. Expected Outcomes/Goals Expected Outcomes/Goals 1. PO intake to meet at least 75% of estimated nutritional needs.
[2016-11-27] MEDS: OLANZapine 5 mg Oral Disintegrating Tab PO SCH ×2 (08:46→17:34)
--- NOTE | 2016-11-27 21:44 | Progress Notes ---
DATE: 11/27/2016 SUBJECTIVE: Chart reviewed and the patient interviewed. Also discussed the patient's condition with the staff and reviewed records and labs. The patient is still confused and he is still agitated. Also, still has episodes of yelling and screaming. The patient also is still withdrawn and interacting minimally with others. Also, is still confused and still has difficulty expressing himself and expressing his feelings and he gets agitated when he is not able to express himself. On the other hand, the patient continues to comply with taking his medications. Discussed with case management coordinator discharge plans and placement issue. The patient is still unable to provide any safe plan for his self care and at the same time brothers and family are fighting together about his care and case management coordinator is confused about where the patient can go. Also I called the patient's brother in order to discuss with him placement issue, but he did not answer me back, although I left him a message 2 days ago. ASSESSMENT: The patient is still considered to be gravely disabled and with his history of suicidal attempts, the patient is high risk suicide and also considered to be gravely disabled. I recommended that the patient should go to a facility where he can have more care than what the family was providing. At the same time, we will continue monitoring his medications and will continue adjusting psychotropic medications. JOB# [id number]
[2016-11-28] MEDS: OLANZapine 5 mg Oral Disintegrating Tab PO SCH ×2 (09:45→16:29)
--- NOTE | 2016-11-28 21:31 | Progress Notes ---
DATE: 11/28/2016 SUBJECTIVE: Chart reviewed and the patient interviewed. Also discussed the patient's condition with the staff and reviewed records and labs. The patient is still in a depressed mood and he is still feeling hopeless and helpless. The patient also is interacting minimally with other and he wants to be left alone. Also, he is still having episodes of yelling and screaming and gets severely angry. Also, he is still having irritability and also resisting care. ASSESSMENT: The patient is still psychotic and depressed and high risk suicide. TREATMENT PLAN: We will continue monitoring his behavior and his condition closely. Also, continue to work on his ineffective coping and continue to follow up. [facility]# [id number]
[2016-11-29] MEDS: OLANZapine 5 mg Oral Disintegrating Tab PO SCH ×2 (08:46→17:10)
--- NOTE | 2016-11-29 10:14 | General Progress Note ---
Subjective - Review of Systems Events since last encounter: patient is still psychotic and depressed denies chest pain Subjective: awake, agitated nad Objective - Physical Exam Vitals and I&O: Vital Signs Temp 98.1 F 11/29/16 06:51 Pulse 78 11/29/16 06:51 Resp 18 11/29/16 06:51 BP 124/85 11/29/16 06:51 Pulse Ox 96 11/29/16 06:51 Intake & Output 11/28/16 11/29/16 11/29/16 18:59 06:59 18:59 Intake Total 1800 Balance 1800 Intake: Oral 1800 Other: # Voids 4 3 # Bowel Movements 0 0 Active Medications: Current Medications Acetaminophen (Tylenol) 650 mg PO Q4HR PRN PRN Reason: Mild Pain / Temp above 100 Stop: 01/15/17 21:28 Last Admin: 11/20/16 21:08 Dose: 650 mg Acetaminophen/Hydrocodone Bitart ([place] 10 Mg/325 Mg) 1 tab PO Q6H PRN PRN Reason: Pain (Mild) Stop: 01/15/17 23:31 Last Admin: 11/27/16 08:45 Dose: 1 tab Diazepam (Valium) 5 mg PO TID PRN PRN Reason: Anxiety Ketorolac Tromethamine (Toradol) 30 mg IM Q6HR PRN PRN Reason: Pain (Moderate) Stop: 01/16/17 19:35 Last Admin: 11/29/16 00:17 Dose: 30 mg Olanzapine (Zyprexa Zydis) 5 mg PO BID KENDRA PRN Reason: Protocol Stop: 01/16/17 05:59 Last Admin: 11/29/16 08:46 Dose: 5 mg Paroxetine HCl (Paxil) 40 mg PO DAILY KENDRA Stop: 01/16/17 08:59 Last Admin: 11/29/16 08:45 Dose: 40 mg Temazepam (Restoril) 15 mg PO HS PRN; Protocol PRN Reason: Insomnia Stop: 01/15/17 23:31 Last Admin: 11/25/16 20:47 Dose: 15 mg Trazodone HCl (Desyrel) 50 mg PO HS KENDRA PRN Reason: Protocol Stop: 01/18/17 20:59 Last Admin: 11/28/16 20:18 Dose: 50 mg General: No acute distress HEENT: Atraumatic Cardiovascular: Regular rate, Normal S1, Normal S2 Abdomen: Bowel sounds Assessment/Plan - Problem List Patient Problems: All Active Problems H/O hyperlipidemia (Acute) Z86.39 H/O: CVA (cerebrovascular accident) (Acute) Z86.73 H/O: depression (Acute) Z86.59 - Plan Plan: as per psych as problems arise Nutritional Asmnt/Malnutr-PDOC - Dietary Evaluation Malnutrition Findings (Please click <Entered> for more info): Nutritional Asmnt/Malnutrition Start: 11/19/16 16: 01 Text: Status: Complete Freq: Document 11/19/16 16:01 GSUN (Rec: 11/19/16 16:19 GSUN [email or web address]) Nutritional Asmnt/Malnutrition Patient General Information Nutritional Screening Moderate Risk Screening Diagnosis Mood disorder, depressed, nonspecific, 5150 Pertinent Medical Hx/Surgical Hx Cerebral palsy, hyperlipidemia , mental delay Subjective Information 56 year old male form home. Sales Producer was approached and informed by RN today that pt has been refusing meals. Spoke to pt, pt nodded when asked if he felt hungry, shook head when asked if he wanted any food. Spoke to CHILD AND YOUTH PROGRAM ASSISTANT, CHILD AND YOUTH PROGRAM ASSISTANT attempted to feed today, pt turned head away. Per RN notes , pt with episodes of yelling and resistive of care, does eat when pt is calm. Per nursing staff, pt does like juice. No muscle fat wasting noted. Current Diet Order/ Nutrition Support [facility] soft ground Pertinent Medications Reviewed. Pertinent Labs No current labs. Nutritional Hx/Data Height 1.75 m Height (Calculated Centimeters) 175.3 Current Weight (lbs) 77.882 kg Weight (Calculated Kilograms) 77.9 Weight (Calculated Grams) 60028.8 [place] Body Weight 160 Weight Status Approriate GI Symptoms Skin Integrity/Comment: Aj 15. Skin intact. Current %PO Poor (25-49%) Estimated Nutritional Goals BEE in Kcals: Using Current wt Calories/Kcals/Kg CBW 171.7lb/78kg Kcals Calculated 1950-2340kcal (25-30kcal/kg) Protein Calculated 62-78g (0.8-1g/kg) Fluid: ml 1950-2340ml (1ml/kcal) Nutritional Problem 1. Problem Problem Inadequate oral food beverage intake realted to Etiology cognition aeb Signs/Symptoms: pt refusing meals and resistive of care Intervention/Recommendation Comments 1. Conitnue with current diet order. Avg PO intake indequate , pt noted to be refusing meals and resistive of care. Nursing staff to provide total assist with meals. 2. Recommend Boost Breeze TID as pt noted to tolerate juice. Expected Outcomes/Goals Expected Outcomes/Goals 1. PO intake to meet at least 75% of estimated nutritional needs.
--- NOTE | 2016-11-29 18:15 | Progress Notes ---
DATE: 11/29/2016 SUBJECTIVE: Chart reviewed and the patient interviewed. Also discussed the patient's condition with the staff and reviewed records and labs. The patient continued to be severely depressed and he is still withdrawn. Also, interacting minimally with others. The patient also is still having episodes of yelling and screaming, but less and the patient is still during interview seems to be suspicious and slightly paranoid. Otherwise, the patient continued to comply with taking his medications with no side effect of medications. ASSESSMENT: The patient is still depressed. TREATMENT PLAN: We will continue to monitor his behavior and his condition closely. Also, we will work on his irritability and discharge plans and we will continue to follow up. JOB# [id number]
[2016-11-29] MEDS: Hydrocodone/APAP 10 mg/325 mg Tab PO PRN (21:51)
[2016-11-30] MEDS: OLANZapine 5 mg Oral Disintegrating Tab PO SCH ×2 (09:22→16:24)
[2016-11-30] MEDS: Hydrocodone/APAP 10 mg/325 mg Tab PO PRN (16:54)
--- NOTE | 2016-11-30 21:04 | Progress Notes ---
DATE: 11/30/2016 SUBJECTIVE: The patient was seen, chart reviewed, and discussed with staff. The patient is currently in the hospital, not safe for a lower level of care. Unable to care for his basic needs. On [id number], the patient is minimally interactive, appears to be with developmental disability. I cannot understand anything he says. Episodes of yelling and screaming. Possible paranoia. Needing a lot of prompting, redirection, and also a lot of help with his ADLs. ASSESSMENT: The patient remains symptomatic, depressed, withdrawn, gravely disabled, still with episodes of screaming. PLAN: We will continue to monitor. His medications were noted. No side effects noted. We will continue also to help the patient with placement. JOB# [id number]
[2016-12-01] MEDS: OLANZapine 5 mg Oral Disintegrating Tab PO SCH ×2 (08:29→16:24)
--- NOTE | 2016-12-01 09:29 | General Progress Note ---
Subjective - Review of Systems Events since last encounter: patient remains withdrawn confused , irritable at times denies pain Subjective: awake, agitated nad Objective - Physical Exam Vitals and I&O: Vital Signs Temp 98.0 F 12/01/16 06:19 Pulse 79 12/01/16 06:19 Resp 18 12/01/16 06:19 BP 146/71 12/01/16 06:19 Pulse Ox 95 12/01/16 06:19 Intake & Output 11/30/16 12/01/16 12/01/16 18:59 06:59 18:59 Intake Total 800 240 Balance 800 240 Intake: Oral 800 240 Other: # Voids 4 2 # Bowel Movements 1 1 Active Medications: Current Medications Acetaminophen (Tylenol) 650 mg PO Q4HR PRN PRN Reason: Mild Pain / Temp above 100 Stop: 01/15/17 21:28 Last Admin: 11/29/16 17:38 Dose: 650 mg Acetaminophen/Hydrocodone Bitart ([place] 10 Mg/325 Mg) 1 tab PO Q6H PRN PRN Reason: Pain (Mild) Stop: 01/15/17 23:31 Last Admin: 11/30/16 16:54 Dose: 1 tab Diazepam (Valium) 5 mg PO TID PRN PRN Reason: Anxiety Ketorolac Tromethamine (Toradol) 30 mg IM Q6HR PRN PRN Reason: Pain (Moderate) Stop: 01/16/17 19:35 Last Admin: 11/29/16 00:17 Dose: 30 mg Olanzapine (Zyprexa Zydis) 5 mg PO BID KENDRA PRN Reason: Protocol Stop: 01/16/17 05:59 Last Admin: 12/01/16 08:29 Dose: 5 mg Paroxetine HCl (Paxil) 40 mg PO DAILY KENDRA Stop: 01/16/17 08:59 Last Admin: 12/01/16 08:29 Dose: 40 mg Temazepam (Restoril) 15 mg PO HS PRN; Protocol PRN Reason: Insomnia Stop: 01/15/17 23:31 Last Admin: 11/29/16 20:33 Dose: 15 mg Trazodone HCl (Desyrel) 50 mg PO HS KENDRA PRN Reason: Protocol Stop: 01/18/17 20:59 Last Admin: 11/30/16 21:05 Dose: 50 mg General: No acute distress HEENT: Atraumatic Cardiovascular: Regular rate, Normal S1, Normal S2 Abdomen: Bowel sounds Assessment/Plan - Problem List Patient Problems: All Active Problems H/O hyperlipidemia (Acute) Z86.39 H/O: CVA (cerebrovascular accident) (Acute) Z86.73 H/O: depression (Acute) Z86.59 - Plan Plan: as per psych as problems arise Nutritional Asmnt/Malnutr-PDOC - Dietary Evaluation Malnutrition Findings (Please click <Entered> for more info): Nutritional Asmnt/Malnutrition Start: 11/19/16 16: 01 Text: Status: Complete Freq: Document 11/19/16 16:01 GSUN (Rec: 11/19/16 16:19 GSUN [email or web address]) Nutritional Asmnt/Malnutrition Patient General Information Nutritional Screening Moderate Risk Screening Diagnosis Mood disorder, depressed, nonspecific, 5150 Pertinent Medical Hx/Surgical Hx Cerebral palsy, hyperlipidemia , mental delay Subjective Information 56 year old male form home. [place] Compliance Coordinator was approached and informed by RN today that pt has been refusing meals. Spoke to pt, pt nodded when asked if he felt hungry, shook head when asked if he wanted any food. Spoke to IT TECHNICAL SUPPORT SPECIALIST, IT TECHNICAL SUPPORT SPECIALIST attempted to feed today, pt turned head away. Per RN notes , pt with episodes of yelling and resistive of care, does eat when pt is calm. Per nursing staff, pt does like juice. No muscle fat wasting noted. Current Diet Order/ Nutrition Support [facility] soft ground Pertinent Medications Reviewed. Pertinent Labs No current labs. Nutritional Hx/Data Height 1.75 m Height (Calculated Centimeters) 175.3 Current Weight (lbs) 77.882 kg Weight (Calculated Kilograms) 77.9 Weight (Calculated Grams) 94988.8 [place] Body Weight 160 Weight Status Approriate GI Symptoms Skin Integrity/Comment: Aj 15. Skin intact. Current %PO Poor (25-49%) Estimated Nutritional Goals BEE in Kcals: Using Current wt Calories/Kcals/Kg CBW 171.7lb/78kg Kcals Calculated 1950-2340kcal (25-30kcal/kg) Protein Calculated 62-78g (0.8-1g/kg) Fluid: ml 1950-2340ml (1ml/kcal) Nutritional Problem 1. Problem Problem Inadequate oral food beverage intake realted to Etiology cognition aeb Signs/Symptoms: pt refusing meals and resistive of care Intervention/Recommendation Comments 1. Conitnue with current diet order. Avg PO intake indequate , pt noted to be refusing meals and resistive of care. Nursing staff to provide total assist with meals. 2. Recommend Boost Breeze TID as pt noted to tolerate juice. Expected Outcomes/Goals Expected Outcomes/Goals 1. PO intake to meet at least 75% of estimated nutritional needs.
[2016-12-01] MEDS: Hydrocodone/APAP 10 mg/325 mg Tab PO PRN (12:52)
--- NOTE | 2016-12-01 20:17 | Progress Notes ---
DATE: 12/01/2016 SUBJECTIVE: The patient was seen, chart reviewed, discussed with staff. The patient is currently in the hospital, not safe for a lower level of care, unable to care for his basic needs. The patient minimally interactive, currently with developmental disability, some yelling episodes, screaming episodes, needing prompting, and redirection, also help with ADLs. ASSESSMENT: The patient remains symptomatic, withdrawn, episodes of screaming. Medications were reviewed. No overt side effects noted. The patient cannot care for his basic needs. PLAN: We will continue to monitor. Given his ongoing symptoms, he is not safe for discharge. We will coordinate care with social security benefits interviewer. JOB# [id number]
[2016-12-02] MEDS: OLANZapine 5 mg Oral Disintegrating Tab PO SCH ×2 (09:04→18:48)
--- NOTE | 2016-12-02 09:27 | General Progress Note ---
Subjective - Review of Systems Events since last encounter: patient still. psychotic ,irritable denies pain Subjective: awake, agitated nad Objective - Physical Exam Vitals and I&O: Vital Signs Temp 97.8 F 12/02/16 06:49 Pulse 78 12/02/16 06:49 Resp 20 12/02/16 06:49 BP 110/77 12/02/16 06:49 Pulse Ox 97 12/02/16 06:49 Intake & Output 12/01/16 12/02/16 12/02/16 18:59 06:59 18:59 Intake Total 900 120 Balance 900 120 Intake: Oral 900 120 Other: # Voids 4 3 # Bowel Movements 1 0 Active Medications: Current Medications Acetaminophen (Tylenol) 650 mg PO Q4HR PRN PRN Reason: Mild Pain / Temp above 100 Stop: 01/15/17 21:28 Last Admin: 11/29/16 17:38 Dose: 650 mg Acetaminophen/Hydrocodone Bitart ([place] 10 Mg/325 Mg) 1 tab PO Q6H PRN PRN Reason: Pain (Mild) Stop: 01/15/17 23:31 Last Admin: 12/01/16 12:52 Dose: 1 tab Diazepam (Valium) 5 mg PO TID PRN PRN Reason: Anxiety Ketorolac Tromethamine (Toradol) 30 mg IM Q6HR PRN PRN Reason: Pain (Moderate) Stop: 01/16/17 19:35 Last Admin: 11/29/16 00:17 Dose: 30 mg Olanzapine (Zyprexa Zydis) 5 mg PO BID KENDRA PRN Reason: Protocol Stop: 01/16/17 05:59 Last Admin: 12/02/16 09:04 Dose: 5 mg Paroxetine HCl (Paxil) 40 mg PO DAILY KENDRA Stop: 01/16/17 08:59 Last Admin: 12/02/16 09:04 Dose: 40 mg Temazepam (Restoril) 15 mg PO HS PRN; Protocol PRN Reason: Insomnia Stop: 01/15/17 23:31 Last Admin: 11/29/16 20:33 Dose: 15 mg Trazodone HCl (Desyrel) 50 mg PO HS KENDRA PRN Reason: Protocol Stop: 01/18/17 20:59 Last Admin: 12/01/16 21:15 Dose: 50 mg General: No acute distress HEENT: Atraumatic Cardiovascular: Regular rate, Normal S1, Normal S2 Abdomen: Bowel sounds Assessment/Plan - Problem List Patient Problems: All Active Problems H/O hyperlipidemia (Acute) Z86.39 H/O: CVA (cerebrovascular accident) (Acute) Z86.73 H/O: depression (Acute) Z86.59 - Plan Plan: as per psych as problems arise Nutritional Asmnt/Malnutr-PDOC - Dietary Evaluation Malnutrition Findings (Please click <Entered> for more info): Nutritional Asmnt/Malnutrition Start: 11/19/16 16: 01 Text: Status: Complete Freq: Document 11/19/16 16:01 GSUN (Rec: 11/19/16 16:19 GSUN [email or web address]) Nutritional Asmnt/Malnutrition Patient General Information Nutritional Screening Moderate Risk Screening Diagnosis Mood disorder, depressed, nonspecific, 5150 Pertinent Medical Hx/Surgical Hx Cerebral palsy, hyperlipidemia , mental delay Subjective Information 56 year old male form home. Recreation Manager was approached and informed by RN today that pt has been refusing meals. Spoke to pt, pt nodded when asked if he felt hungry, shook head when asked if he wanted any food. Spoke to MANAGER RFID, MANAGER RFID attempted to feed today, pt turned head away. Per RN notes , pt with episodes of yelling and resistive of care, does eat when pt is calm. Per nursing staff, pt does like juice. No muscle fat wasting noted. Current Diet Order/ Nutrition Support [facility] soft ground Pertinent Medications Reviewed. Pertinent Labs No current labs. Nutritional Hx/Data Height 1.75 m Height (Calculated Centimeters) 175.3 Current Weight (lbs) 77.882 kg Weight (Calculated Kilograms) 77.9 Weight (Calculated Grams) 37449.8 [place] Body Weight 160 Weight Status Approriate GI Symptoms Skin Integrity/Comment: Aj 15. Skin intact. Current %PO Poor (25-49%) Estimated Nutritional Goals BEE in Kcals: Using Current wt Calories/Kcals/Kg CBW 171.7lb/78kg Kcals Calculated 1950-2340kcal (25-30kcal/kg) Protein Calculated 62-78g (0.8-1g/kg) Fluid: ml 1950-2340ml (1ml/kcal) Nutritional Problem 1. Problem Problem Inadequate oral food beverage intake realted to Etiology cognition aeb Signs/Symptoms: pt refusing meals and resistive of care Intervention/Recommendation Comments 1. Conitnue with current diet order. Avg PO intake indequate , pt noted to be refusing meals and resistive of care. Nursing staff to provide total assist with meals. 2. Recommend Boost Breeze TID as pt noted to tolerate juice. Expected Outcomes/Goals Expected Outcomes/Goals 1. PO intake to meet at least 75% of estimated nutritional needs.
[2016-12-02] MEDS: Hydrocodone/APAP 10 mg/325 mg Tab PO PRN (13:43)
--- NOTE | 2016-12-03 04:09 | Progress Notes ---
DATE: SUBJECTIVE: Chart reviewed and the patient interviewed. Also discussed the patient's condition with the staff and reviewed records and labs. The patient is still in a depressed mood and he is still isolative and withdrawn. The patient also is still having difficulty interacting with others. The patient's family also still has difficulty making decisions ____ are fighting and some of them wants patient to go home and some of them wants placement. Discussed with clinical case manager the dangers of patient going home, but it seems that most of the family going toward that direction. ASSESSMENT: The patient is still confused and is still depressed. TREATMENT PLAN: We will work on with the family in regard to ____ into placement. Otherwise, we will discharge the patient with the family with outpatient treatment and followup. JOB# [id number]
[2016-12-03] MEDS: OLANZapine 5 mg Oral Disintegrating Tab PO SCH (08:42)
[2016-12-03] MEDS: Hydrocodone/APAP 10 mg/325 mg Tab PO PRN (08:49)
--- NOTE | 2016-12-03 09:46 | General Progress Note ---
Subjective - Review of Systems Events since last encounter: patient remains confused and depressed with no acute distresss Subjective: awake, agitated nad Objective - Physical Exam Vitals and I&O: Vital Signs Temp 97.6 F 12/03/16 06:20 Pulse 82 12/03/16 06:20 Resp 18 12/03/16 06:20 BP 142/79 12/03/16 06:20 Pulse Ox 97 12/03/16 06:20 Intake & Output 12/02/16 12/03/16 12/03/16 18:59 06:59 18:59 Intake Total 1000 120 Balance 1000 120 Intake: Oral 1000 120 Other: # Voids 3 3 # Bowel Movements 0 Active Medications: Current Medications Acetaminophen (Tylenol) 650 mg PO Q4HR PRN PRN Reason: Mild Pain / Temp above 100 Stop: 01/15/17 21:28 Last Admin: 11/29/16 17:38 Dose: 650 mg Acetaminophen/Hydrocodone Bitart ([place] 10 Mg/325 Mg) 1 tab PO Q6H PRN PRN Reason: Pain (Mild) Stop: 01/15/17 23:31 Last Admin: 12/03/16 08:49 Dose: 1 tab Diazepam (Valium) 5 mg PO TID PRN PRN Reason: Anxiety Ketorolac Tromethamine (Toradol) 30 mg IM Q6HR PRN PRN Reason: Pain (Moderate) Stop: 01/16/17 19:35 Last Admin: 11/29/16 00:17 Dose: 30 mg Olanzapine (Zyprexa Zydis) 5 mg PO BID KENDRA PRN Reason: Protocol Stop: 01/16/17 05:59 Last Admin: 12/03/16 08:42 Dose: 5 mg Paroxetine HCl (Paxil) 40 mg PO DAILY KENDRA Stop: 01/16/17 08:59 Last Admin: 12/03/16 08:34 Dose: 40 mg Temazepam (Restoril) 15 mg PO HS PRN; Protocol PRN Reason: Insomnia Stop: 01/15/17 23:31 Last Admin: 11/29/16 20:33 Dose: 15 mg Trazodone HCl (Desyrel) 50 mg PO HS KENDRA PRN Reason: Protocol Stop: 01/18/17 20:59 Last Admin: 12/02/16 20:27 Dose: 50 mg General: No acute distress HEENT: Atraumatic Cardiovascular: Regular rate, Normal S1, Normal S2 Abdomen: Bowel sounds Assessment/Plan - Problem List Patient Problems: All Active Problems H/O hyperlipidemia (Acute) Z86.39 H/O: CVA (cerebrovascular accident) (Acute) Z86.73 H/O: depression (Acute) Z86.59 - Plan Plan: as per psych as problems arise Nutritional Asmnt/Malnutr-PDOC - Dietary Evaluation Malnutrition Findings (Please click <Entered> for more info): Nutritional Asmnt/Malnutrition Start: 11/19/16 16: 01 Text: Status: Complete Freq: Document 11/19/16 16:01 GSUN (Rec: 11/19/16 16:19 GSUN [email or web address]) Nutritional Asmnt/Malnutrition Patient General Information Nutritional Screening Moderate Risk Screening Diagnosis Mood disorder, depressed, nonspecific, 5150 Pertinent Medical Hx/Surgical Hx Cerebral palsy, hyperlipidemia , mental delay Subjective Information 56 year old male form home. Environmental Tech was approached and informed by RN today that pt has been refusing meals. Spoke to pt, pt nodded when asked if he felt hungry, shook head when asked if he wanted any food. Spoke to HOT DIMPLING MACHINE OPERATOR, HOT DIMPLING MACHINE OPERATOR attempted to feed today, pt turned head away. Per RN notes , pt with episodes of yelling and resistive of care, does eat when pt is calm. Per nursing staff, pt does like juice. No muscle fat wasting noted. Current Diet Order/ Nutrition Support [facility] soft ground Pertinent Medications Reviewed. Pertinent Labs No current labs. Nutritional Hx/Data Height 1.75 m Height (Calculated Centimeters) 175.3 Current Weight (lbs) 77.882 kg Weight (Calculated Kilograms) 77.9 Weight (Calculated Grams) 59142.8 [place] Body Weight 160 Weight Status Approriate GI Symptoms Skin Integrity/Comment: Aj 15. Skin intact. Current %PO Poor (25-49%) Estimated Nutritional Goals BEE in Kcals: Using Current wt Calories/Kcals/Kg CBW 171.7lb/78kg Kcals Calculated 1950-2340kcal (25-30kcal/kg) Protein Calculated 62-78g (0.8-1g/kg) Fluid: ml 1950-2340ml (1ml/kcal) Nutritional Problem 1. Problem Problem Inadequate oral food beverage intake realted to Etiology cognition aeb Signs/Symptoms: pt refusing meals and resistive of care Intervention/Recommendation Comments 1. Conitnue with current diet order. Avg PO intake indequate , pt noted to be refusing meals and resistive of care. Nursing staff to provide total assist with meals. 2. Recommend Boost Breeze TID as pt noted to tolerate juice. Expected Outcomes/Goals Expected Outcomes/Goals 1. PO intake to meet at least 75% of estimated nutritional needs.
--- NOTE | 2016-12-03 10:19 | Discharge Summary ---
DATE OF DISCHARGE: 12/03/2016 FINAL DIAGNOSIS/PRIMARY DIAGNOSIS: Major depression, severe, recurrent, with psychotic features. REASON FOR HOSPITALIZATION: The patient was admitted to the hospital because of increased depression and because of suicidal ideations. The patient has been feeling hopeless and helpless. The patient also has not been able to express himself or his feelings. HOSPITAL COURSE: The patient continued to be severely depressed and also he had periods of agitation. The patient also was interacting minimally with others. He also continued to have thoughts of suicide. Gradually, the patient's affect was brighter and he was not as agitated and he was more cooperative with the staff. He denied any thoughts of suicide or homicide. He also interacted more with peers and with others. Placement was an issue and the family was disagreeing together about where the patient should go and some wanted the patient to be transferred to a nursing facility where he can get good care and others want him to be home. Finally, the family agreed to take him home and the patient was transferred to home. Physical exam of the patient showed that the patient has cardioplegia. No major medical problems while he was in the hospital. Also, no major abnormal labs. DISCHARGE PLAN: The patient discharged from the hospital and went to live with his family with plans to continue his treatment as an outpatient. EXPECTED OUTCOME AFTER DISCHARGE: Guarded, unless if the patient continues with his treatment and the family help with his continuation of care. JOB# [id number]
== END 2016-12-03 14:30 | disposition home or self-care (01) | DRG 885 ==
LOC: GERO 20:40
PROVIDERS: ADMIT Psychiatry & Neurology Psychiatry; ATTEND Psychiatry & Neurology Psychiatry
DX: F33.3 Major depressive disorder, recurrent, severe with psychotic symptoms (principal); R45.851 Suicidal ideations; E78.5 Hyperlipidemia, unspecified; G80.9 Cerebral palsy, unspecified; F41.9 Anxiety disorder, unspecified; G47.00 Insomnia, unspecified; M19.90 Unspecified osteoarthritis, unspecified site; Z88.0 Allergy status to penicillin; Z86.73 Personal history of transient ischemic attack (TIA), and cerebral infarction without residual deficits
CPT/HCPCS: J1200; J1630; J1885; J2060; X3401; Z7610

== ENCOUNTER 2017-05-11 20:54 | Inpatient (IN) | payer MEDICARE, MEDICAID ==
[2017-05-11 21:47] VITALS: BP 118/89
--- NOTE | 2017-05-12 17:42 | History & Physical ---
ADMIT DATE: 05/11/2017 REASON FOR ADMISSION: Psychiatric disorder. HISTORY OF PRESENT ILLNESS: This is a 57-year-old male, who was admitted to Ger[facility] Unit for underlying psychiatric illnesses and suicidal attempt by Dr. Jean. patient with underlying history of cerebral palsy, very confused, unable to communicate. Most of the history was obtained by available medical records. PAST MEDICAL HISTORY: Cerebral palsy, hyperlipidemia. PAST SURGICAL HISTORY: No reported significant surgery. FAMILY HISTORY: No significant family history reported. SOCIAL HISTORY: No reported alcohol, tobacco, or street drug use. CURRENT MEDICATIONS: Tylenol, Lexapro, Ativan, Ambien, Zyprexa. ALLERGIES: ALLERGIC TO PENICILLIN. REVIEW OF SYSTEMS: Unobtainable. PHYSICAL EXAMINATION: VITAL SIGNS: Temperature 98.6, pulse 54, respirations 18, blood pressure 124/70, oxygen 91% on room air. HEART: S1, S2 normal. LUNGS: Clear. ABDOMEN: Soft. EXTREMITIES: No edema. ASSESSMENT: 1. Cerebral palsy. 2. Hyperlipidemia. 3. Sinus bradycardia. 4. Mental disorder. PLAN: Continue current treatment plan. Monitor blood pressure and other vitals. Low fat diet. Psych management per psychiatric. Available medical records from the Emergency Room reviewed. The patient appeared medically stable. Thank you, Dr. Jean, for allowing me to participate in this patient's care. JOB# [id number] LEXIS
--- NOTE | 2017-05-12 18:01 | Psychosocial Evaluation ---
DATE OF SERVICE: 05/12/2017 PAST MEDICAL HISTORY: The patient has diagnosis of cerebral palsy. SOCIAL HISTORY: The patient lives with his brother. The patient is single, never and has no children. No known alcohol or street drug use. ALLERGIES: No known allergies. MENTAL STATUS EXAMINATION: The patient appears much older than stated age. Anxious. Irritable and a depressed mood. Unable to communicate the common goals and to try to express himself and talk, but has difficulty talking and difficulty expressing himself. The patient denied hallucinations or delusions. Admits to suicidal ideations with plan, but denies homicidal ideations. The patient is alert and he is oriented to the situation and person, but unable to come to understand that it is an orientation to the day. Intact immediate and recent and remote memories. Poor insight and poor judgment. ASSESSMENT: PRIMARY DIAGNOSIS: Major depression, severe, recurrent, without psychotic features. MEDICAL DIAGNOSIS: Cerebral palsy. TREATMENT PLAN: We will start the patient on Lexapro. We will start individual as well as milieu psychotherapy. We will monitor psychotropic medications and we will work on his ineffective coping. ESTIMATED LENGTH OF STAY: 5-7 days. THE PATIENT'S STRENGTHS AND WEAKNESSES: The patient's strength is not clear at this time. Weakness is his ineffective coping. AFTER DISCHARGE PLAN: Outpatient treatment and followup will continue as an outpatient. [facility]# [id number]
[2017-05-12] MEDS ORDERED: Escitalopram Oxalate 5 mg Tab PO SCH (21:00)
--- NOTE | 2017-05-13 01:16 | Psychosocial Evaluation ---
DATE OF SERVICE: 05/11/2017 INITIAL EVALUATION AND MENTAL STATUS EXAM AGE: The patient's age 57. SEX: Male. PHYSICIAN: Dr. Jean. CHIEF COMPLAINT: 5150 hold for dangerous to self. HISTORY OF PRESENT ILLNESS: The patient is a 57-year-old male who is living with his brother. The patient said that he wanted to kill himself by drinking a bottle of bleach. The patient has been feeling hopeless and helpless. The patient has cerebral palsy and since the diagnosis was cerebral palsy, he has been severely depressed because he has not been able to care for himself and to have his basic needs met. He has been feeling hopeless and helpless and he started to have thoughts about suicide. PAST PSYCHIATRIC DICTATION ENDS HERE. [facility]# [id number]
[2017-05-13] MEDS: Escitalopram Oxalate 5 mg Tab PO SCH (20:48)
--- NOTE | 2017-05-14 19:01 | General Progress Note ---
Subjective - Review of Systems Service Date: 05/14/17 Subjective: patient doing ok no new concern Objective - Physical Exam Vitals and I&O: Vital Signs Temp 99.1 F 05/14/17 14:00 Pulse 90 05/14/17 14:00 Resp 18 05/14/17 14:00 BP 118/77 05/14/17 14:00 Pulse Ox 97 05/14/17 14:00 Intake & Output 05/13/17 05/14/17 05/14/17 18:59 06:59 18:59 Intake Total 960 Balance 960 Intake: Oral 960 Other: # Voids 3 # Bowel Movements 1 Active Medications: Current Medications Acetaminophen (Tylenol) 650 mg PO Q4HR PRN PRN Reason: Mild Pain / Temp above 100 Stop: 07/10/17 21:48 Last Admin: 05/14/17 17:23 Dose: 650 mg Escitalopram Oxalate (Lexapro) 10 mg PO HS KENDRA PRN Reason: Protocol Stop: 07/12/17 07:49 Last Admin: 05/13/17 20:48 Dose: 10 mg Lorazepam (Ativan) 0.5 mg PO Q4HR PRN; Protocol PRN Reason: Anxiety Stop: 06/10/17 21:48 Last Admin: 05/13/17 20:47 Dose: 0.5 mg Zolpidem Tartrate (Ambien) 5 mg PO HS PRN PRN Reason: Insomnia Stop: 07/10/17 21:48 Last Admin: 05/13/17 20:47 Dose: 5 mg Cardiovascular: Regular rate Lungs: Clear to auscultation Assessment/Plan - Assessment Assessment: Cerebral palsy Hyperlipidemia Mental health disorder - Plan Plan: Continue current treatment Psych follow up
[2017-05-14] MEDS: Escitalopram Oxalate 5 mg Tab PO SCH (21:19)
[2017-05-15] MEDS: Escitalopram Oxalate 5 mg Tab PO SCH (20:32)
--- NOTE | 2017-05-15 21:59 | Progress Notes ---
DATE: 05/15/2017 PSYCHIATRIC PROGRESS NOTE SUBJECTIVE: Chart reviewed and the patient interviewed. Also discussed the patient's condition with the staff and reviewed the records and labs. The patient is still severely depressed. The patient also is still feeling hopeless and helpless. The patient also is interacting minimally with others. The patient also still has thoughts of suicide with a plan to drink bleach. Otherwise, the patient is compliant with taking Lexapro with no side effects. ASSESSMENT: The patient is still depressed and is still high risk suicide. TREATMENT PLAN: We will continue monitoring his behavior and his condition closely. Also, continue to monitor his medications and his behavior. Also, continue to work on his ineffective coping and his severe level of depression. [facility]# [id number]
--- NOTE | 2017-05-15 22:13 | Progress Notes ---
DATE: 05/13/2017 SUBJECTIVE: Chart reviewed and the patient interviewed. Also discussed the patient's condition with the staff and reviewed records and labs. The patient continued to be severely depressed and he is still feeling hopeless and helpless. The patient also still having thought of suicide with plan to drink bleach. Also, still has difficulty with communication and unable to verbalize his feelings to himself because of mumbling, but at the same time, he is clearly expressing that he wants to kill himself by drinking bleach. ASSESSMENT: The patient is still depressed and suicidal. TREATMENT PLAN: We will continue monitoring his behavior and his condition closely. Also, we will increase Lexapro to 10 mg at bedtime and we will continue to follow up closely. JOB# [id number]
--- NOTE | 2017-05-15 22:29 | Progress Notes ---
DATE: 05/14/2017 SUBJECTIVE: Chart reviewed and the patient interviewed. Also discussed the patient's condition with the staff and reviewed records and labs. The patient is still severely depressed. The patient also is still feeling hopeless and helpless. Also, still isolating himself and he stays in bed most of the time. Also interacting minimally with peers and with others. Otherwise, the patient is compliant with taking his medications. The patient denies any side effects of medications. ASSESSMENT: The patient is still depressed and suicidal. TREATMENT PLAN: We will continue monitoring his behavior and his condition closely. Also continue Lexapro same dose. Also, we will work on his ineffective coping and follow up closely. JOB# [id number]
--- NOTE | 2017-05-16 10:24 | General Progress Note ---
Subjective - Review of Systems Service Date: 05/15/17 Subjective: patient doing ok no new concern Objective - Physical Exam Vitals and I&O: Vital Signs Temp 98.3 F 05/16/17 05:37 Pulse 65 05/16/17 05:37 Resp 20 05/16/17 05:37 BP 113/67 05/16/17 05:37 Pulse Ox 97 05/16/17 05:37 Intake & Output 05/15/17 05/16/17 05/16/17 17:59 06:59 18:59 Intake Total Balance Intake: Oral Other: # Voids # Bowel Movements Active Medications: Current Medications Acetaminophen (Tylenol) 650 mg PO Q4HR PRN PRN Reason: Mild Pain / Temp above 100 Stop: 07/10/17 21:48 Last Admin: 05/14/17 17:23 Dose: 650 mg Escitalopram Oxalate (Lexapro) 10 mg PO HS KENDRA PRN Reason: Protocol Stop: 07/12/17 07:49 Last Admin: 05/15/17 20:32 Dose: 10 mg Lorazepam (Ativan) 0.5 mg PO Q4HR PRN; Protocol PRN Reason: Anxiety Stop: 06/10/17 21:48 Last Admin: 05/13/17 20:47 Dose: 0.5 mg Zolpidem Tartrate (Ambien) 5 mg PO HS PRN PRN Reason: Insomnia Stop: 07/10/17 21:48 Last Admin: 05/16/17 00:09 Dose: 5 mg Cardiovascular: Regular rate Lungs: Clear to auscultation Assessment/Plan - Assessment Assessment: Cerebral palsy Hyperlipidemia Mental health disorder - Plan Plan: Continue current treatment Psych follow up
[2017-05-16] MEDS: Escitalopram Oxalate 5 mg Tab PO SCH (21:21)
--- NOTE | 2017-05-16 21:42 | General Progress Note ---
Subjective - Review of Systems Service Date: 05/16/17 Subjective: patient doing ok no reported concern Objective - Physical Exam Vitals and I&O: Vital Signs Temp 98.9 F 05/16/17 20:08 Pulse 76 05/16/17 20:08 Resp 18 05/16/17 20:08 BP 106/71 05/16/17 20:08 Pulse Ox 97 05/16/17 20:08 Intake & Output 05/16/17 05/16/17 05/17/17 06:59 18:59 06:59 Intake Total 1200 120 Balance 1200 120 Intake: Oral 1200 120 Other: # Voids 3 3 # Bowel Movements 0 Active Medications: Current Medications Acetaminophen (Tylenol) 650 mg PO Q4HR PRN PRN Reason: Mild Pain / Temp above 100 Stop: 07/10/17 21:48 Last Admin: 05/14/17 17:23 Dose: 650 mg Escitalopram Oxalate (Lexapro) 10 mg PO HS KENDRA PRN Reason: Protocol Stop: 07/12/17 07:49 Last Admin: 05/16/17 21:21 Dose: 10 mg Lorazepam (Ativan) 0.5 mg PO Q4HR PRN; Protocol PRN Reason: Anxiety Stop: 06/10/17 21:48 Last Admin: 05/13/17 20:47 Dose: 0.5 mg Zolpidem Tartrate (Ambien) 5 mg PO HS PRN PRN Reason: Insomnia Stop: 07/10/17 21:48 Last Admin: 05/16/17 21:22 Dose: 5 mg Cardiovascular: Regular rate Lungs: Clear to auscultation Assessment/Plan - Assessment Assessment: Cerebral palsy Hyperlipidemia Mental health disorder - Plan Plan: Continue current treatment Psych follow up
[2017-05-17] MEDS: Escitalopram Oxalate 5 mg Tab PO SCH (20:50)
--- NOTE | 2017-05-17 20:50 | Progress Notes ---
DATE: 05/17/2017 The patient is currently in the hospital. The patient has been living with brother, wanted to kill himself by drinking a bottle of bleach, feeling hopeless and helpless, currently in bed, difficult to understand him. Staff noting he has been significantly calmer, more cooperative, no agitation. Denying any SI, smiling. Staff noting he is doing better and is feeling better and has been more interactive and engaged. Dr. Jean saw the patient over the weekend, noting that he still felt hopeless and helpless and was isolating. The patient is sleeping well, tolerant of medications and treatment. ASSESSMENT: The patient seems to be improving. Staff noting more interactive and cooperative and engaged, smiling more with brighter affect. PLAN: We will continue to monitor. The patient seems to be improving. We will err on the side of caution and monitor for further 24-48 hours to make sure he is devoid of any suicidal symptoms. [facility]# [id number]
[2017-05-18] MEDS: Multivitamin Tab PO SCH (10:36)
--- NOTE | 2017-05-18 11:18 | Discharge Summary ---
DATE OF DISCHARGE: 05/18/2017 JUSTIFICATION FOR HOSPITALIZATION: Irritable, depressed, suicidal. HISTORY OF PRESENT ILLNESS: A 57-year-old male with history of cerebral palsy, depression, noted to be irritable, depressed, suicidal upon initial presentation, very hopeless and despairing. PAST PSYCHIATRIC HISTORY: It seems there are some developmental disability, cerebral palsy and depression. Under medical, please see full H and P. MEDICATIONS: Noted. SOCIAL HISTORY: Family very involved. MENTAL STATUS EXAMINATION: Please see full psych eval for details. PROVISIONAL DIAGNOSES: Major depression, recurrent, severe. No overt evidence of psychosis. Under medical, please see full H and P. HOSPITAL COURSE: After initial assessment, the patient was started on Lexapro. No evidence of psychosis. Zyprexa was not initiated. Valium was continued, but the patient was not very anxious, was not really utilized. The patient noted to be improved, able to verbalize pointing at alphabet and numbers and responding to questions appropriately and toward the latter end of his hospitalization asking to go home. More hope, more motivation. Sleeping very well, getting along well with staff and peers, calm, denying any SI. CONDITION UPON DISCHARGE: Improved, allowing ADLs. No agitation, no combative behaviors. Mood notes his mood is better, laughing and smiling and linear. No SI, no HI, no intent, no plan. No psychotic symptoms, better insight as noted by his improvement in his good compliance. Staff noting robust improvement as well. DISCHARGE DIAGNOSES: Major depression, recurrent, severe, no psychosis. Under medical, please see full H and P including cerebral palsy. PROGNOSIS: The patient follows up with outpatient mental services and remains treatment compliant. Prognosis will improve, otherwise guarded. JOB# [id number]
--- NOTE | 2017-05-18 20:55 | General Progress Note ---
Subjective - Review of Systems Service Date: 05/18/17 Subjective: patient doing ok patient was lying comfortably in bed Objective - Physical Exam Vitals and I&O: Vital Signs Temp 98.4 F 05/18/17 19:35 Pulse 85 05/18/17 19:35 Resp 18 05/18/17 19:35 BP 105/67 05/18/17 19:35 Pulse Ox 94 05/18/17 19:35 Intake & Output 05/18/17 05/18/17 05/19/17 06:59 18:59 06:59 Intake Total 60 120 Balance 60 120 Intake: Oral 60 120 Other: # Voids 1 1 # Bowel Movements 1 0 Stool Characteristics Formed Brown Active Medications: Current Medications Acetaminophen (Tylenol) 650 mg PO Q4HR PRN PRN Reason: Mild Pain / Temp above 100 Stop: 07/10/17 21:48 Last Admin: 05/17/17 10:40 Dose: 650 mg Diazepam (Valium) 5 mg PO TID PRN; Protocol PRN Reason: Agitation Stop: 07/17/17 10:26 Escitalopram Oxalate (Lexapro) 10 mg PO HS KENDRA PRN Reason: Protocol Stop: 07/12/17 07:49 Last Admin: 05/17/17 20:50 Dose: 10 mg Lorazepam (Ativan) 0.5 mg PO Q4HR PRN; Protocol PRN Reason: Anxiety Stop: 06/10/17 21:48 Last Admin: 05/18/17 10:36 Dose: 0.5 mg Multivitamins/Vitamin C (Theragran) 1 tab PO DAILY KENDRA Stop: 07/17/17 08:59 Last Admin: 05/18/17 10:36 Dose: 1 tab Zolpidem Tartrate (Ambien) 5 mg PO HS PRN PRN Reason: Insomnia Stop: 07/10/17 21:48 Last Admin: 05/17/17 20:50 Dose: 5 mg Cardiovascular: Regular rate Lungs: Clear to auscultation Assessment/Plan - Assessment Assessment: Cerebral palsy Hyperlipidemia Mental health disorder - Plan Plan: Continue current treatment Psych follow up Nutritional Asmnt/Malnutr-PDOC - Dietary Evaluation Malnutrition Findings (Please click <Entered> for more info): Nutritional Asmnt/Malnutrition Start: 05/17/17 10: 43 Text: Status: Complete Freq: Document 05/17/17 10:43 LCHENG (Rec: 05/17/17 10:47 OSIRIS [email or web address]) Nutritional Asmnt/Malnutrition Patient General Information Nutritional Screening Moderate Risk Diagnosis major depression Pertinent Medical Hx/Surgical Hx cerebral palsy, hyperlipidemia Subjective Information Per EMR, patient is confused and delusional, PO intake 75- 100% of meals. Current Diet Order/ Nutrition Support mech soft chopped Pertinent Medications reviewed Pertinent Labs no lab available Nutritional Hx/Data Height 1.73 m Height (Calculated Centimeters) 172.7 Current Weight (lbs) 77.111 kg Weight (Calculated Kilograms) 77.1 Weight (Calculated Grams) 54889.7 [place] Body Weight 154 Body Mass Index (BMI) 25.8 Weight Status Overweight GI Symptoms GI Symptoms None Last BM 05/17 Difficult in: None Skin Integrity/Comment: intact Current %PO Good (75-100%) Estimated Nutritional Goals BEE in Kcals: Using Current wt Calories/Kcals/Kg 25-30 Kcals Calculated [id number] Protein: Using Current wt Protein g/k.8-1 Protein Calculated 62-77 Fluid: ml 1925-2310ml (1ml/kcal) Nutritional Problem No current Nutrition Prob Problem N/A Etiology 1. Continue with current diet as ordered. 2. Monitor PO intake, wt, labs and skin integrity 3. F/U as low risk in 7d ays, 05/23 Signs/Symptoms: 1. PO intake to meet at least 75% of nutritional needs. 2. Wt stability, skin to remain intact.
[2017-05-18] MEDS: Escitalopram Oxalate 5 mg Tab PO SCH (20:57)
[2017-05-19] MEDS: Multivitamin Tab PO SCH (08:29)
--- NOTE | 2017-05-20 00:37 | Progress Notes ---
DATE: 05/19/2017 The patient was to have been discharged yesterday. Due to transportation difficulties, he remained in the hospital. I saw him this morning, he was happy, smiling, nodding that he felt okay. Denying any SI. No combative behaviors. No agitation. Staff noting robust improvement. We will discharge today. JOB# [id number]
--- NOTE | 2017-05-20 06:08 | Discharge Summary ---
DATE OF DISCHARGE: 05/19/2017 THE PATIENT'S AGE: 57. SEX: Male. PHYSICIAN: Dr. Jean. FINAL DIAGNOSIS/PRIMARY DIAGNOSIS: Major depression, severe, single episode, without psychotic features. REASON FOR HOSPITALIZATION: The patient was admitted to the hospital because of depression and suicidal ideations and the patient tried to commit suicide by swallowing bleach. HOSPITAL COURSE: The patient continued to be severely anxious and severely depressed. The patient also was withdrawn. He also continued to have thoughts of suicide with plan to drink bleach. The patient also was isolative and wanted to be left alone. Otherwise, the patient was cooperative with his treatment and he was compliant with taking medications. Gradually, the patient's affect was brighter. The patient was not agitated or psychotic. The patient also was compliant with taking his medications. Also, the patient admitted that he does not have any intention to kill himself or others. The patient was discharged from the hospital. AFTER DISCHARGE PLANS: The patient discharged from the hospital with plans for outpatient treatment. EXPECTED OUTCOME AFTER DISCHARGE: Fair if the patient continued to take his psychotropic medications and follow up with discharge plans. JOB# [id number]
== END 2017-05-19 12:55 | disposition home or self-care (01) | DRG 885 ==
LOC: GERO2 20:54
PROVIDERS: ADMIT Psychiatry & Neurology Psychiatry; ATTEND Psychiatry & Neurology Psychiatry
DX: F32.2 Major depressive disorder, single episode, severe without psychotic features (principal); R45.851 Suicidal ideations; R00.1 Bradycardia, unspecified; G80.9 Cerebral palsy, unspecified; Z66 Do not resuscitate; E78.5 Hyperlipidemia, unspecified; Z88.0 Allergy status to penicillin
CPT/HCPCS: Z7610